=== PATIENT | male | born 1975 | race Caucasian/White ===

== ENCOUNTER 2018-06-17 18:42 | Inpatient (IN) | payer MEDICAID, OTHER, SELFPAY ==
[~2018-06-17] VITALS: Ht 182.9 cm; Wt 77.8 kg
--- NOTE | 2018-06-17 18:52 | NUR ---
IRENE ADAMES WITH SERVICE DOG FROM [facility], PT OUT OF INSULIN, METOPROLOL AND AMLODIPINE, SEEN AT [facility] YESTERDAY FOR SAME BUT LOST RX. HX DIABETES, HTN, DENIES ANYTHING ELSE. EKG DONE. PT PLACED ON MONITOR, VSS ON RA. NAD. PT C/O NAUSEA
--- NOTE | 2018-06-17 19:04 | NUR ---
BEDSIDE REPORT RECEIVED FROM JOANNE ASHTON. PT HAS DOG, STATED FOR EMOTIONAL SUPPORT IN ROOM.
--- NOTE | 2018-06-17 19:05 | NUR ---
FSBS DONE WITH HOSPITAL GLUCOMETER READS - HI
--- NOTE | 2018-06-17 19:10 | NUR ---
ORDERED FLUIDS HANGING
[2018-06-17] MEDS ORDERED: AMLODIPINE PO ×2 (19:26→21:02)
[2018-06-17] MEDS ORDERED: METOPROLOL (19:26)
[2018-06-17] MEDS ORDERED: SODIUM CHLORIDE 0.9% 1,000ML IVBOLUS ONE ×2 (19:30→20:30)
[2018-06-17] MEDS ORDERED: ONDANSETRON 2MG/ML, 2ML IVPush ONE (19:30)
[2018-06-17] MEDS ORDERED: SODIUM CHLORIDE FLUSH 10ML SYR IVF ONE (19:30)
[2018-06-17 19:33] LABS: MICROSCOPIC AUTO
[2018-06-17 19:38] LABS: O2 FLOW ROOM AIR L/min
[2018-06-17 19:39] LABS: CULTURE INDICATED? NO
[2018-06-17 19:41] LABS: BASOPHILS # (AUTO) 0.07 x10^3/uL (0-0.1); BASOPHILS % (AUTO) 0 % (0-1); EOSINOPHILS % (AUTO) 0 % (1-7); LYMPHOCYTES # (AUTO) 0.48 x10^3/uL (1-3.4); LYMPHOCYTES % (AUTO) 3 % (22-44); MD NO; MEAN CORPUSCULAR HEMOGLOBIN 29.9 pg (27.5-34.5); MEAN CORPUSCULAR HGB CONC 33.7 g/dL (33.2-36.2); MEAN CORPUSCULAR VOLUME 88.6 fL (81-97); MEAN PLATELET VOLUME 8.6 fL (7.4-10.4); MONOCYTES # (AUTO) 0.43 x10^3/uL (0.2-0.8); MONOCYTES % (AUTO) 3 % (2-9); NEUTROPHILS # (AUTO) 15.26 x10^3/uL (1.8-6.8); NEUTROPHILS % (AUTO) 94 % (42-75); PLATELET COUNT 352 x10^3/uL (130-400); RED BLOOD COUNT 4.03 x10^6/uL (4.38-5.82); RED CELL DISTRIBUTION WIDTH 14.4 % (9.4-14.8)
[2018-06-17 19:46] LABS: ALANINE AMINOTRANSFERASE 24 U/L (12-78); ALBUMIN 2.6 g/dL (3.4-5.0); ANION GAP 18 mmol/L (5-15); CALCIUM 7.9 mg/dL (8.5-10.1); CHLORIDE 93 mmol/L (98-107)
[2018-06-17 19:49] LABS: ALKALINE PHOSPHATASE 117 U/L (45-117); BILIRUBIN,TOTAL 0.7 mg/dL (0.2-1.0); CREATININE 1.98 mg/dL (0.7-1.3)
[2018-06-17] MEDS ORDERED: ONDANSETRON 2MG/ML, 2ML ONE (20:21)
[2018-06-17] MEDS ORDERED: INSULIN SINGLE DOSE, ER SQ-INSULIN ONE (20:21)
[2018-06-17 20:23] LABS: ACETONE, SERUM Large (80mg/dL) mg/dL (Negative)
--- NOTE | 2018-06-17 20:25 | NUR ---
PT AWARE OF PLAN FOR ADMISSION, AWARE THAT DOG CAN NOT STAY WITH HIM, PT STATES THAT HE HAS NO ONE TO COME NEW CAR GET READY MECHANIC THE DOG, AWARE WILL CALL ANIMAL CONTROL TO NEW CAR GET READY MECHANIC DOG FOR SHANTELL AND HOLD HIM UNTIL DISCHARGE. PT AGREEABLE WITH THIS PLAN.
[2018-06-17] MEDS ORDERED: hydrALAzine 20 MG/ML, 1ML IV ONE (20:30)
[2018-06-17] MEDS ORDERED: INSULIN REGULAR 100 UNITS/ML, 3ML VIAL IVPush ONE (20:30)
--- NOTE | 2018-06-17 20:31 | NUR ---
ANIMAL CONTROL CALLED AND IS ON THE WAY TO [employer] DOG.
--- NOTE | 2018-06-17 20:49 | NUR ---
ANIMAL CONTROL HERE AT THIS TIME.
[2018-06-17] MEDS ORDERED: METO25TA35 PO (21:02)
[2018-06-17] MEDS ORDERED: NPH,100V SQ (21:02)
--- NOTE | 2018-06-17 21:13 | NUR ---
HOSPITALIST IN TO SEE PT. ORDERED FLUIDS INFUSING. PT HR WAS 143, ERP AWARE. PT HR 139 AT THIS TIME. PT RESTING CALMLY IN BED. ANIMAL CONTROL CAME TO [facility]WER PT DOG. WILL CONTINUE TO MONITOR.
[2018-06-17] MEDS ORDERED: REGULAR INSULIN 62.5 UNITS in SODIUM CHLORIDE 0.9% 249.375 ML IV PRN (21:14)
[2018-06-17] MEDS ORDERED: D5%-0.45% NACL 1,000 ML IV PRN (21:14)
[2018-06-17] MEDS ORDERED: GLUCAGON 1 MG IM PRN (21:30)
[2018-06-17] MEDS ORDERED: DEXTROSE 4 GM TAB.CHEW PO PRN (21:30)
[2018-06-17] MEDS ORDERED: ONDANSETRON 2MG/ML, 2ML IVPush PRN (21:30)
[2018-06-17] MEDS ORDERED: DEXTROSE 50%, 50ML SYRINGE IVPush PRN (21:30)
--- NOTE | 2018-06-17 21:30 | NUR ---
PT FSBS DONE, READING IS STILL - HI. LAB IN TO DRAW REPEAT BLOOD GLUCOSE. PT RESTING CALMLY IN BED. PT HR REMAINS IN THE 130s.
--- NOTE | 2018-06-17 21:32 | NUR ---
FSBS READING HI
[2018-06-17] MEDS: SODIUM CHLORIDE 0.9% 1,000 ML IV SCH ×3 (22:02→23:37)
[2018-06-17 22:03] LABS: ANION GAP 17 mmol/L (5-15); CALCIUM 7.7 mg/dL (8.5-10.1); CHLORIDE 99 mmol/L (98-107); CREATININE 2.04 mg/dL (0.7-1.3)
[2018-06-17 22:06] LABS: CREATINE KINASE, TOTAL 256 U/L (39-308)
[2018-06-17 22:43] LABS: HEMOGLOBIN A1C 8.4 % (4.2-6.3)
--- NOTE | 2018-06-17 23:07 | NUR ---
REPORT TO SCOTT ASHTON
[2018-06-17] MEDS: HEPARIN 5,000 UNITS/ML, 1ML SQ SCH (23:36)
[2018-06-17 23:40] VITALS: BP 173/107
[2018-06-17 23:41] LABS: ANION GAP 12 mmol/L (5-15); CALCIUM 7.8 mg/dL (8.5-10.1); CHLORIDE 103 mmol/L (98-107); CREATININE 2.15 mg/dL (0.7-1.3)
[2018-06-17 23:43] LABS: CREATINE KINASE, TOTAL 262 U/L (39-308)
[2018-06-18] MEDS: hydrALAzine 20 MG/ML, 1ML IVPush PRN (00:06)
[2018-06-18] MEDS: SODIUM CHLORIDE 0.9% 1,000 ML IV SCH ×3 (00:14→02:14)
[2018-06-18] MEDS ORDERED: POTASSIUM CHLORIDE 20 MEQ in SODIUM CHLORIDE 0.9% 250 ML IV ONE (00:30)
[2018-06-18] MEDS ORDERED: PANTOPRAZOLE 40 MG IV IVPush SCH (01:00)
[2018-06-18 02:04] LABS: ANION GAP 8 mmol/L (5-15); CALCIUM 7.9 mg/dL (8.5-10.1); CHLORIDE 107 mmol/L (98-107); CREATININE 1.94 mg/dL (0.7-1.3)
[2018-06-18] MEDS: LABETALOL 5 MG/ML SYRINGE IVPush PRN ×2 (03:12→13:52)
[2018-06-18 04:46] LABS: MEAN CORPUSCULAR HEMOGLOBIN 29.8 pg (27.5-34.5); MEAN CORPUSCULAR HGB CONC 34.1 g/dL (33.2-36.2); MEAN CORPUSCULAR VOLUME 87.6 fL (81-97); MEAN PLATELET VOLUME 8.1 fL (7.4-10.4); PLATELET COUNT 345 x10^3/uL (130-400); RED BLOOD COUNT 3.83 x10^6/uL (4.38-5.82); RED CELL DISTRIBUTION WIDTH 14.4 % (9.4-14.8)
[2018-06-18 04:56] LABS: ANION GAP 6 mmol/L (5-15); CALCIUM 7.8 mg/dL (8.5-10.1); CHLORIDE 113 mmol/L (98-107)
[2018-06-18 04:57] LABS: CREATININE 1.77 mg/dL (0.7-1.3)
[2018-06-18] MEDS: HEPARIN 5,000 UNITS/ML, 1ML SQ SCH ×4 (05:30→21:09)
[2018-06-18 05:32] VITALS: BP 159/93
[2018-06-18 05:47] LABS: BASOPHILS # (AUTO) 0.08 x10^3/uL (0-0.1); BASOPHILS % (AUTO) 0 % (0-1); EOSINOPHILS % (AUTO) 0 % (1-7); LYMPHOCYTES # (AUTO) 1.52 x10^3/uL (1-3.4); LYMPHOCYTES % (AUTO) 8 % (22-44); MD SCAN; MONOCYTES # (AUTO) 1.19 x10^3/uL (0.2-0.8); MONOCYTES % (AUTO) 6 % (2-9); NEUTROPHILS # (AUTO) 16.14 x10^3/uL (1.8-6.8); NEUTROPHILS % (AUTO) 85 % (42-75)
[2018-06-18] MEDS ORDERED: POTASSIUM PHOSPHATE 44 MEQ in SODIUM CHLORIDE 0.9% 500 ML IV ONE (07:30)
[2018-06-18] MEDS: METOPROLOL TARTRATE 100 MG TABLET PO SCH ×2 (08:27→21:08)
[2018-06-18] MEDS: SODIUM CHLORIDE FLUSH 10ML SYR IVF SCH ×2 (08:27→21:00)
[2018-06-18] MEDS: AMLODIPINE 10 MG TAB PO SCH (08:27)
[2018-06-18] MEDS: SODIUM CHLORIDE 0.45% 1,000 ML IV SCH ×3 (09:37→23:30)
[2018-06-18] MEDS: INSULIN NPH HUMAN 100 UNIT/ML, 3ML VIAL SQ-INSULIN SCH ×2 (09:37→21:09)
[2018-06-18 10:26] LABS: AMPHETAMINE SCREEN, URINE Negative (Negative); BARBITURATE SCREEN, URINE Negative (Negative); BENZODIAZEPINE SCREEN, URINE Negative (Negative); CANNABINOID SCREEN, URINE Positive (Negative); COCAINE SCREEN, URINE Negative (Negative); METHADONE SCREEN, URINE Negative (Negative); OPIATE SCREEN, URINE Negative (Negative)
[2018-06-18] MEDS: INSULIN LISPRO 100 UNITS/ML, PEN SQ-INSULIN SCH ×3 (11:30→21:08)
[2018-06-18 11:57] LABS: RAPID INFLUENZA A Negative (Negative); RAPID INFLUENZA B Negative (Negative)
[2018-06-18 13:21] VITALS: BP 185/110
[2018-06-18 14:34] VITALS: BP 159/94
[2018-06-18] MEDS ORDERED: ACETAMINOPHEN 325 MG TABLET PO PRN (15:00)
[2018-06-18 20:22] VITALS: BP 155/90
[2018-06-19 01:54] VITALS: BP 150/85
[2018-06-19 05:45] LABS: ANION GAP 7 mmol/L (5-15); CALCIUM 7.8 mg/dL (8.5-10.1); CHLORIDE 111 mmol/L (98-107)
[2018-06-19 05:54] LABS: MEAN CORPUSCULAR HEMOGLOBIN 29.7 pg (27.5-34.5); MEAN CORPUSCULAR HGB CONC 33.6 g/dL (33.2-36.2); MEAN CORPUSCULAR VOLUME 88.3 fL (81-97); MEAN PLATELET VOLUME 8.5 fL (7.4-10.4); PLATELET COUNT 317 x10^3/uL (130-400); RED BLOOD COUNT 4.14 x10^6/uL (4.38-5.82); RED CELL DISTRIBUTION WIDTH 14.6 % (9.4-14.8)
[2018-06-19] MEDS: INSULIN LISPRO 100 UNITS/ML, PEN SQ-INSULIN SCH ×4 (06:39→21:21)
[2018-06-19 06:50] LABS: MD YES
[2018-06-19 06:53] LABS: BAND#(MANUAL) 0.12 x10^3/uL; BANDS%(MANUAL) 1 % (0-7); LYMPH#(MANUAL) 2.28 x10^3/uL (1-3.4); LYMPHS% (MANUAL) 19 % (22-44); MONOS#(MANUAL) 0.36 x10^3/uL (0.3-2.7); MONOS% (MANUAL) 3 % (2-9); SEG#(MANUAL) 9.24 x10^3/uL (1.8-6.8); SEGS% (MANUAL) 77 % (42-75)
[2018-06-19 06:55] LABS: <PLATELET ESTIMATE> ADEQUATE; <PLT MORPHOLOGY> NORMAL PLT MORPH; <RBC MORPHOLOGY> NORMAL
[2018-06-19 07:45] VITALS: BP 183/109
[2018-06-19] MEDS: AMLODIPINE 10 MG TAB PO SCH (08:46)
[2018-06-19] MEDS: METOPROLOL TARTRATE 100 MG TABLET PO SCH ×2 (08:47→21:19)
[2018-06-19] MEDS: SODIUM CHLORIDE FLUSH 10ML SYR IVF SCH ×2 (08:47→21:00)
[2018-06-19] MEDS: INSULIN NPH HUMAN 100 UNIT/ML, 3ML VIAL SQ-INSULIN SCH ×2 (08:47→21:20)
[2018-06-19] MEDS: SODIUM CHLORIDE 0.45% 1,000 ML IV SCH (08:48)
[2018-06-19 11:36] VITALS: BP 166/96
[2018-06-19] MEDS: LABETALOL 5 MG/ML SYRINGE IVPush PRN ×2 (11:37→18:48)
[2018-06-19 13:28] VITALS: BP 169/97
[2018-06-19] MEDS: HEPARIN 5,000 UNITS/ML, 1ML SQ SCH ×2 (13:30→19:41)
[2018-06-19 18:27] VITALS: BP 167/96
[2018-06-19 21:10] VITALS: BP 171/92
[2018-06-19] MEDS: hydrALAzine 20 MG/ML, 1ML IVPush PRN (21:24)
[2018-06-20 00:03] VITALS: BP 137/78
[2018-06-20] MEDS: HEPARIN 5,000 UNITS/ML, 1ML SQ SCH ×2 (02:24→13:30)
[2018-06-20 02:37] VITALS: BP 150/86
[2018-06-20] MEDS: INSULIN LISPRO 100 UNITS/ML, PEN SQ-INSULIN SCH ×3 (06:39→16:23)
[2018-06-20 07:47] VITALS: BP 154/96
[2018-06-20 07:54] VITALS: BP 154/74
[2018-06-20] MEDS: METOPROLOL TARTRATE 100 MG TABLET PO SCH (08:33)
[2018-06-20] MEDS: AMLODIPINE 10 MG TAB PO SCH (08:33)
[2018-06-20] MEDS: SODIUM CHLORIDE FLUSH 10ML SYR IVF SCH (08:34)
[2018-06-20] MEDS: INSULIN NPH HUMAN 100 UNIT/ML, 3ML VIAL SQ-INSULIN SCH (08:36)
[2018-06-20] MEDS ORDERED: NPH,100V SQ (13:29)
[2018-06-20] MEDS ORDERED: AMLO10TA4 PO (13:29)
[2018-06-20] MEDS ORDERED: METO25TA35 PO (13:29)
[2018-06-20 15:42] VITALS: BP 176/104
[2018-06-20] MEDS ORDERED: INSULIN NPH HUMAN 100 UNIT/ML, 3ML VIAL SQ-INSULIN ONE (16:30)
[2018-06-20 17:27] VITALS: BP 162/89
== END 2018-06-20 17:35 | disposition home or self-care (01) | DRG 638 ==
LOC: ED 20:56 → EDIP 21:14 → CSU 23:26 → 4NOR 06-18 10:06
PROVIDERS: ADMIT Family Medicine; ATTEND Family Medicine
DX: E10.10 Type 1 diabetes mellitus with ketoacidosis without coma (principal); N17.9 Acute kidney failure, unspecified; E10.43 Type 1 diabetes mellitus with diabetic autonomic (poly)neuropathy; E86.0 Dehydration; E87.5 Hyperkalemia; E87.6 Hypokalemia; I10 Essential (primary) hypertension; K31.84 Gastroparesis; Z59.0 Homelessness; Z63.8 Other specified problems related to primary support group; Z79.4 Long term (current) use of insulin; Z91.19 Patient's noncompliance with other medical treatment and regimen; Z88.0 Allergy status to penicillin; Z88.8 Allergy status to other drugs, medicaments and biological substances
CPT/HCPCS: 36415; 36600; 74022; 80048; 80053; 80307; 81001; 82010; 82550; 82803; 82947; 82962; 83036; 83690; 83735; 83930; 84100; 85025; 87081; 87400; 93005; 96374; 96375; 96376; G0378; J1815; J2405; J3480; C9113; J0360; J7030; J7040; J7050

== ENCOUNTER 2019-04-13 13:22 | Inpatient (IN) | payer MEDICAID ==
[~2019-04-13] VITALS: Ht 182.9 cm; Wt 68.9 kg
[~2019-04-13 13:22] MED LIST: AMLO10TA4 PO; AMLODIPINE PO; METO25TA35 PO; METOPROLOL; NPH,100V SQ
--- NOTE | 2019-04-13 14:11 | NUR ---
PT AMBULATORY TO ED FROM HOME. C/O N/V X4 DAYS. HX DM, HTN, STG 3 KIDNEY FAILURE, BGL 370 IN TRIAGE. "I FEEL DEHYDRATED". PIV EST, FLUIDS INFUSING. C/O ABD PAIN AND KIDNEY PAIN. NO DIFFICUTLY URINATING. HYPERTENSIVE, SEE VITALS. A&OX4 GCS 15 IDA CP. CALL GONZALES IN REACH. REPORT TO GERTRUDIS ASHTON.
[2019-04-13] MEDS ORDERED: ONDANSETRON 2MG/ML, 2ML ONE (14:16)
[2019-04-13] MEDS ORDERED: ONDANSETRON 2MG/ML, 2ML IVPush ONE (14:30)
[2019-04-13] MEDS ORDERED: SODIUM CHLORIDE 0.9% 1,000ML IVBOLUS ONE ×2 (14:30→16:30)
[2019-04-13] MEDS ORDERED: SODIUM CHLORIDE FLUSH 10ML SYR IVF ONE (14:30)
[2019-04-13 14:48] LABS: BASOPHILS # (AUTO) 0.02 x10^3/uL (0-0.1); BASOPHILS % (AUTO) 0 % (0-1); EOSINOPHILS % (AUTO) 0 % (1-7); LYMPHOCYTES # (AUTO) 1.12 x10^3/uL (1-3.4); LYMPHOCYTES % (AUTO) 10 % (22-44); MD NO; MEAN CORPUSCULAR HEMOGLOBIN 29.5 pg (27.5-34.5); MEAN CORPUSCULAR VOLUME 89.5 fL (81-97); MEAN PLATELET VOLUME 10.4 fL (7.4-10.4); MONOCYTES # (AUTO) 0.72 x10^3/uL (0.2-0.8); MONOCYTES % (AUTO) 6 % (2-9); NEUTROPHILS # (AUTO) 9.51 x10^3/uL (1.8-6.8); NEUTROPHILS % (AUTO) 84 % (42-75); PLATELET COUNT 241 x10^3/uL (130-400); RED BLOOD COUNT 5.97 x10^6/uL (4.38-5.82); RED CELL DISTRIBUTION WIDTH 13.8 % (9.4-14.8)
[2019-04-13 14:52] LABS: ALANINE AMINOTRANSFERASE 21 U/L (12-78); ALBUMIN 4.1 g/dL (3.4-5.0); ANION GAP 10 mmol/L (5-15); CHLORIDE 96 mmol/L (98-107); CREATININE 3.21 mg/dL (0.7-1.3)
[2019-04-13 14:55] LABS: ALKALINE PHOSPHATASE 144 U/L (45-117); BILIRUBIN,TOTAL 0.9 mg/dL (0.2-1.0); TOTAL PROTEIN 8.5 g/dL (6.4-8.2)
[2019-04-13 15:14] LABS: CULTURE INDICATED? NO; MICROSCOPIC AUTO
[2019-04-13] MEDS ORDERED: MORPHINE SULFATE 4 MG/ML, 1ML ONE (15:26)
--- NOTE | 2019-04-13 15:29 | NUR ---
MEDICATED FOR BILATERAL FLANK PAIN
[2019-04-13 15:30] LABS: ACETONE, SERUM Negative (Negative)
[2019-04-13] MEDS ORDERED: MORPHINE SULFATE 4 MG/ML, 1ML IVPush PRN (15:30)
--- NOTE | 2019-04-13 16:22 | NUR ---
AWAITING RE-EVAL. NO DISTRESS
[2019-04-13] MEDS ORDERED: SODIUM CHLORIDE 0.9% 1,000 ML IV ONE ×2 (16:24→16:27)
[2019-04-13] MEDS ORDERED: SODIUM CHLORIDE FLUSH 10ML SYR IVF PRN (16:30)
[2019-04-13] MEDS: SODIUM CHLORIDE 0.9% 1,000 ML IV SCH (16:31)
--- NOTE | 2019-04-13 16:49 | NUR ---
PT AWARE OF INTENTION TO ADMIT. IV BOLUS INFUSING. PT WATCHING TV, NO DISTRESS
[2019-04-13] MEDS ORDERED: INSU100C5 SQ-INSULIN (16:51)
[2019-04-13] MEDS ORDERED: DEXTROSE 4 GM TAB.CHEW PO PRN (17:00)
[2019-04-13] MEDS ORDERED: ONDANSETRON ODT 4 MG PO PRN (17:00)
[2019-04-13] MEDS ORDERED: ONDANSETRON 2MG/ML, 2ML IVPush PRN (17:00)
[2019-04-13] MEDS ORDERED: DEXTROSE 50%, 50ML SYRINGE IVPush PRN (17:00)
[2019-04-13] MEDS ORDERED: GLUCAGON 1 MG IM PRN (17:00)
--- NOTE | 2019-04-13 17:52 | NUR ---
REPORT TO GENARO ASHTON. PT TO BE TRANSPORTED TO FLOOR.
--- NOTE | 2019-04-13 18:30 | NUR ---
AWAITING TRANSPORTATION. NO DISTRESS.
[2019-04-13 19:32] VITALS: BP 136/91
[2019-04-13 19:45] VITALS: BP 136/91
[2019-04-13] MEDS: SODIUM CHLORIDE FLUSH 10ML SYR IVF SCH (20:37)
[2019-04-13] MEDS: INSULIN GLARGINE 100 UNITS/ML, PEN SQ-INSULIN SCH (21:00)
[2019-04-13] MEDS: INSULIN LISPRO 100 UNITS/ML, PEN SQ-INSULIN SCH (21:00)
[2019-04-13] MEDS: AMLODIPINE 2.5 MG TABLET PO SCH (22:15)
[2019-04-13] MEDS: PANTOPRAZOLE 40 MG IV IVPush SCH (22:16)
[2019-04-14 01:08] VITALS: BP 108/72
[2019-04-14] MEDS: SODIUM CHLORIDE 0.9% 1,000 ML IV SCH ×3 (04:09→23:10)
[2019-04-14 06:13] LABS: CHLORIDE 105 mmol/L (98-107)
[2019-04-14 06:18] LABS: BASOPHILS # (AUTO) 0.07 x10^3/uL (0-0.1); BASOPHILS % (AUTO) 1 % (0-1); EOSINOPHILS # (AUTO) 0.05 x10^3/uL (0-0.4); EOSINOPHILS % (AUTO) 1 % (1-7); LYMPHOCYTES # (AUTO) 2.69 x10^3/uL (1-3.4); LYMPHOCYTES % (AUTO) 33 % (22-44); MD NO; MEAN CORPUSCULAR HGB CONC 33.5 g/dL (33.2-36.2); MEAN CORPUSCULAR VOLUME 89.5 fL (81-97); MEAN PLATELET VOLUME 9.4 fL (7.4-10.4); MONOCYTES # (AUTO) 0.74 x10^3/uL (0.2-0.8); MONOCYTES % (AUTO) 9 % (2-9); NEUTROPHILS # (AUTO) 4.58 x10^3/uL (1.8-6.8); NEUTROPHILS % (AUTO) 56 % (42-75); PLATELET COUNT 182 x10^3/uL (130-400); RED BLOOD COUNT 4.32 x10^6/uL (4.38-5.82)
[2019-04-14 06:28] LABS: ALANINE AMINOTRANSFERASE 10 U/L (12-78); ALBUMIN 2.4 g/dL (3.4-5.0); ALKALINE PHOSPHATASE 86 U/L (45-117); ANION GAP 8 mmol/L (5-15); BILIRUBIN,TOTAL 0.5 mg/dL (0.2-1.0); CALCIUM 7.1 mg/dL (8.5-10.1); CREATININE 2.38 mg/dL (0.7-1.3); TOTAL PROTEIN 5.2 g/dL (6.4-8.2)
[2019-04-14] MEDS ORDERED: MAGNESIUM SULFATE PMX 2GM/50ML 50 ML IV ONE (07:30)
[2019-04-14 08:53] VITALS: BP 161/94
[2019-04-14] MEDS: INSULIN GLARGINE 100 UNITS/ML, PEN SQ-INSULIN SCH (08:53)
[2019-04-14] MEDS: PANTOPRAZOLE 40 MG IV IVPush SCH ×2 (08:55→20:49)
[2019-04-14] MEDS: AMLODIPINE 2.5 MG TABLET PO SCH ×2 (08:56→20:47)
[2019-04-14] MEDS: SODIUM CHLORIDE FLUSH 10ML SYR IVF SCH ×2 (08:56→20:49)
[2019-04-14] MEDS: INSULIN LISPRO 100 UNITS/ML, PEN SQ-INSULIN SCH ×4 (09:18→20:49)
[2019-04-14 12:50] VITALS: BP 147/95
[2019-04-14 18:43] VITALS: BP 137/80
[2019-04-14] MEDS ORDERED: INSULIN NPH HUMAN 100 UNIT/ML, 3ML VIAL SQ-INSULIN SCH (21:00)
[2019-04-15 01:28] VITALS: BP 159/91
[2019-04-15 07:57] LABS: BASOPHILS # (AUTO) 0.04 x10^3/uL (0-0.1); BASOPHILS % (AUTO) 1 % (0-1); EOSINOPHILS # (AUTO) 0.14 x10^3/uL (0-0.4); EOSINOPHILS % (AUTO) 2 % (1-7); LYMPHOCYTES # (AUTO) 2.45 x10^3/uL (1-3.4); LYMPHOCYTES % (AUTO) 37 % (22-44); MD NO; MEAN CORPUSCULAR HEMOGLOBIN 29.9 pg (27.5-34.5); MEAN CORPUSCULAR HGB CONC 33.1 g/dL (33.2-36.2); MEAN CORPUSCULAR VOLUME 90.3 fL (81-97); MEAN PLATELET VOLUME 9.3 fL (7.4-10.4); MONOCYTES # (AUTO) 0.65 x10^3/uL (0.2-0.8); MONOCYTES % (AUTO) 10 % (2-9); NEUTROPHILS # (AUTO) 3.44 x10^3/uL (1.8-6.8); NEUTROPHILS % (AUTO) 51 % (42-75); PLATELET COUNT 199 x10^3/uL (130-400); RED BLOOD COUNT 4.59 x10^6/uL (4.38-5.82); RED CELL DISTRIBUTION WIDTH 13.5 % (9.4-14.8)
[2019-04-15 08:02] LABS: ANION GAP 7 mmol/L (5-15); CHLORIDE 111 mmol/L (98-107)
[2019-04-15] MEDS: INSULIN LISPRO 100 UNITS/ML, PEN SQ-INSULIN SCH ×4 (08:08→20:59)
[2019-04-15 08:22] VITALS: BP 162/100
[2019-04-15] MEDS: SODIUM CHLORIDE 0.9% 1,000 ML IV SCH ×2 (08:34→16:40)
[2019-04-15] MEDS: PANTOPRAZOLE 40 MG IV IVPush SCH ×2 (08:35→20:58)
[2019-04-15] MEDS: AMLODIPINE 2.5 MG TABLET PO SCH (08:35)
[2019-04-15] MEDS: SODIUM CHLORIDE FLUSH 10ML SYR IVF SCH ×2 (08:35→20:58)
[2019-04-15] MEDS ORDERED: INSULIN NPH HUMAN 100 UNIT/ML, 3ML VIAL SQ-INSULIN ONE (09:00)
[2019-04-15] MEDS ORDERED: INSULIN NPH HUMAN 100 UNIT/ML, 3ML VIAL SQ-INSULIN SCH (09:00)
[2019-04-15 13:42] VITALS: BP 149/90
[2019-04-15 19:56] VITALS: BP 192/118
[2019-04-15] MEDS: LABETALOL 5MG/ML, 20ML IVPush PRN (20:57)
[2019-04-15] MEDS: INSULIN NPH HUMAN 100 UNIT/ML, 3ML VIAL SQ-INSULIN SCH (20:58)
[2019-04-15] MEDS: AMLODIPINE 5 MG TABLET PO SCH (20:58)
[2019-04-15 21:42] VITALS: BP 168/99
[2019-04-16] VITALS (9 sets, daily range): BP systolic 119–203; BP diastolic 67–116
[2019-04-16] MEDS: SODIUM CHLORIDE 0.9% 1,000 ML IV SCH (00:12)
[2019-04-16] MEDS: LABETALOL 5MG/ML, 20ML IVPush PRN (07:30)
[2019-04-16] MEDS: AMLODIPINE 5 MG TABLET PO SCH ×2 (08:34→21:05)
[2019-04-16] MEDS: INSULIN NPH HUMAN 100 UNIT/ML, 3ML VIAL SQ-INSULIN SCH ×2 (08:35→21:05)
[2019-04-16] MEDS: PANTOPROZOLE 40MG TABLET PO SCH ×2 (08:35→17:06)
[2019-04-16] MEDS: INSULIN LISPRO 100 UNITS/ML, PEN SQ-INSULIN SCH ×6 (08:36→21:04)
[2019-04-16] MEDS: SODIUM CHLORIDE FLUSH 10ML SYR IVF SCH ×2 (08:37→21:05)
[2019-04-16 09:37] LABS: ANION GAP 7 mmol/L (5-15); CALCIUM 7.5 mg/dL (8.5-10.1); CHLORIDE 108 mmol/L (98-107); CREATININE 2.16 mg/dL (0.7-1.3)
[2019-04-16] MEDS ORDERED: hydrALAzine 20 MG/ML, 1ML IV ONE (10:00)
[2019-04-16] MEDS ORDERED: hydrALAzine 20 MG/ML, 1ML IV PRN (11:30)
[2019-04-16] MEDS: METOPROLOL TARTRATE 25 MG TABLET PO SCH ×2 (12:24→21:05)
[2019-04-16] MEDS ORDERED: INSULIN LISPRO 100 UNITS/ML, PEN SQ-INSULIN SCH (17:00)
[2019-04-17 00:21] VITALS: BP 156/94
[2019-04-17] MEDS: PANTOPROZOLE 40MG TABLET PO SCH ×2 (06:22→17:06)
[2019-04-17] MEDS: INSULIN LISPRO 100 UNITS/ML, PEN SQ-INSULIN SCH ×6 (07:00→20:46)
[2019-04-17 07:34] VITALS: BP 145/95
[2019-04-17] MEDS: METOPROLOL TARTRATE 25 MG TABLET PO SCH ×2 (08:39→20:45)
[2019-04-17] MEDS: AMLODIPINE 5 MG TABLET PO SCH ×2 (08:39→20:45)
[2019-04-17] MEDS: SODIUM CHLORIDE FLUSH 10ML SYR IVF SCH ×2 (08:39→20:45)
[2019-04-17] MEDS: INSULIN NPH HUMAN 100 UNIT/ML, 3ML VIAL SQ-INSULIN SCH ×2 (08:41→20:46)
[2019-04-17 12:03] LABS: ANION GAP 7 mmol/L (5-15); CALCIUM 8.6 mg/dL (8.5-10.1); CHLORIDE 109 mmol/L (98-107); CREATININE 2.23 mg/dL (0.7-1.3)
[2019-04-17 12:50] VITALS: BP 161/111
[2019-04-17 20:42] VITALS: BP 111/76
[2019-04-18 00:24] VITALS: BP 132/79
[2019-04-18] MEDS: PANTOPROZOLE 40MG TABLET PO SCH (06:05)
[2019-04-18] MEDS: INSULIN LISPRO 100 UNITS/ML, PEN SQ-INSULIN SCH ×2 (07:00→11:00)
[2019-04-18] MEDS: SODIUM CHLORIDE FLUSH 10ML SYR IVF SCH (08:31)
[2019-04-18] MEDS: AMLODIPINE 5 MG TABLET PO SCH (08:47)
[2019-04-18] MEDS: METOPROLOL TARTRATE 25 MG TABLET PO SCH (08:47)
[2019-04-18] MEDS: INSULIN NPH HUMAN 100 UNIT/ML, 3ML VIAL SQ-INSULIN SCH (08:49)
[2019-04-18 08:52] LABS: ANION GAP 4 mmol/L (5-15); CALCIUM 8.8 mg/dL (8.5-10.1); CHLORIDE 108 mmol/L (98-107); CREATININE 2.52 mg/dL (0.7-1.3)
[2019-04-18 09:08] VITALS: BP 154/85
[2019-04-18] MEDS ORDERED: PANT40TA5 PO (12:20)
[2019-04-18 13:40] VITALS: BP 151/88
[2019-04-18] MEDS ORDERED: FLU VACC QS2019-20 36MOS UP/PF 0.5 ML IM-VACC ONE (15:00)
== END 2019-04-18 14:50 | disposition home or self-care (01) | DRG 469 ==
LOC: ED 16:26 → EDIP 16:27 → ED 16:31 → 3N 18:50 → DCLOUNGE 04-18 14:49
PROVIDERS: ADMIT Internal Medicine; ATTEND Hospitalist
DX: N17.9 Acute kidney failure, unspecified (principal); E10.22 Type 1 diabetes mellitus with diabetic chronic kidney disease; E10.43 Type 1 diabetes mellitus with diabetic autonomic (poly)neuropathy; K31.84 Gastroparesis; D75.1 Secondary polycythemia; E10.65 Type 1 diabetes mellitus with hyperglycemia; D72.829 Elevated white blood cell count, unspecified; N18.3 Chronic kidney disease, stage 3 (moderate); E86.0 Dehydration; E87.1 Hypo-osmolality and hyponatremia; F17.200 Nicotine dependence, unspecified, uncomplicated; I12.9 Hypertensive chronic kidney disease with stage 1 through stage 4 chronic kidney disease, or unspecified chronic kidney disease; I16.1 Hypertensive emergency; Z83.3 Family history of diabetes mellitus; Z91.19 Patient's noncompliance with other medical treatment and regimen; K29.70 Gastritis, unspecified, without bleeding; Z88.0 Allergy status to penicillin; Z88.8 Allergy status to other drugs, medicaments and biological substances
CPT/HCPCS: 36415; 71045; 80048; 80053; 81001; 82010; 82436; 82570; 82728; 82800; 82947; 82962; 83036; 83540; 83550; 83690; 83735; 84100; 84133; 84300; 84443; 85025; 90686; 93005; 96361; 96374; 96375; G0378; J1815; J2405; C9113; J0360; J2270; J3475; J7030

== ENCOUNTER 2019-05-03 18:38 | Inpatient (IN) | payer MEDICAID ==
[~2019-05-03] VITALS: Ht 182.9 cm; Wt 70.8 kg
[~2019-05-03 18:38] MED LIST changes: +INSU100C5 SQ-INSULIN; +PANT40TA5 PO
--- NOTE | 2019-05-03 19:08 | NUR ---
Patient presents to ER c/o N/V/D since yesterday. Patient has not been able to keep any food/water down. He vomited once in triage. No blood noted to vomitus. Patient also c/o constant abd pain in all quadrants. He is unable to describe the pain. Patient denies fevers. He states he had his flu shot a few weeks ago. Patient is in obvious discomfort. Respirations even and unlabored. Fresh vomit bag provided.
[2019-05-03] MEDS ORDERED: HALOPERIDOL 5 MG/ML ONE (19:28)
[2019-05-03] MEDS ORDERED: DIPHENHYDRAMINE 50 MG/ML, 1ML ONE (19:28)
[2019-05-03] MEDS ORDERED: ONDANSETRON 2MG/ML, 2ML ONE (19:29)
[2019-05-03] MEDS ORDERED: METOCLOPRAMIDE 5 MG/ML, 2ML ONE (19:29)
[2019-05-03] MEDS ORDERED: FAMOTIDINE 20 MG/2 ML ONE (19:29)
[2019-05-03] MEDS ORDERED: ONDANSETRON 2MG/ML, 2ML IVPush ONE (19:30)
[2019-05-03] MEDS ORDERED: DIPHENHYDRAMINE 50 MG/ML, 1ML IVPush ONE (19:30)
[2019-05-03] MEDS ORDERED: SODIUM CHLORIDE 0.9% 1,000ML IVBOLUS ONE ×2 (19:30→20:30)
[2019-05-03] MEDS ORDERED: HALOPERIDOL 5 MG/ML IM ONE (19:30)
[2019-05-03] MEDS ORDERED: METOCLOPRAMIDE 5 MG/ML, 2ML IVPush ONE (19:30)
[2019-05-03] MEDS ORDERED: FAMOTIDINE 20 MG/2 ML IVPush ONE (19:30)
[2019-05-03] MEDS ORDERED: SODIUM CHLORIDE FLUSH 10ML SYR IVF ONE (19:30)
[2019-05-03 19:34] LABS: BASOPHILS # (AUTO) 0.04 x10^3/uL (0-0.1); BASOPHILS % (AUTO) 1 % (0-1); EOSINOPHILS # (AUTO) 0.06 x10^3/uL (0-0.4); EOSINOPHILS % (AUTO) 1 % (1-7); LYMPHOCYTES % (AUTO) 25 % (22-44); MD NO; MEAN CORPUSCULAR HEMOGLOBIN 29.6 pg (27.5-34.5); MEAN CORPUSCULAR HGB CONC 33.7 g/dL (33.2-36.2); MEAN CORPUSCULAR VOLUME 87.6 fL (81-97); MEAN PLATELET VOLUME 9.3 fL (7.4-10.4); MONOCYTES # (AUTO) 0.75 x10^3/uL (0.2-0.8); MONOCYTES % (AUTO) 9 % (2-9); NEUTROPHILS % (AUTO) 65 % (42-75); PLATELET COUNT 273 x10^3/uL (130-400); RED BLOOD COUNT 5.23 x10^6/uL (4.38-5.82); RED CELL DISTRIBUTION WIDTH 13.3 % (9.4-14.8)
[2019-05-03 19:44] LABS: ALANINE AMINOTRANSFERASE 18 U/L (12-78); ANION GAP 6 mmol/L (5-15); CALCIUM 9.5 mg/dL (8.5-10.1); CHLORIDE 105 mmol/L (98-107); CREATININE 3.13 mg/dL (0.7-1.3)
[2019-05-03] MEDS ORDERED: DEXTROSE 50%, 50ML SYRINGE ONE (20:01)
[2019-05-03 20:05] LABS: ALKALINE PHOSPHATASE 115 U/L (45-117); BILIRUBIN,TOTAL 0.5 mg/dL (0.2-1.0); TOTAL PROTEIN 7.8 g/dL (6.4-8.2)
[2019-05-03] MEDS ORDERED: DEXTROSE 50%, 50ML SYRINGE IVPush ONE (20:30)
[2019-05-03 20:45] LABS: ACETONE, SERUM Negative (Negative)
--- NOTE | 2019-05-03 20:57 | NUR ---
Pt states feeling much better after medication admin. NS infusing appropriately. Vss. WCTM.
[2019-05-03] MEDS ORDERED: PROMETHAZINE 25 MG/ML, 1ML ONE (21:23)
[2019-05-03] MEDS ORDERED: PROMETHAZINE 25 MG/ML, 1ML IM ONE (21:30)
--- NOTE | 2019-05-03 21:30 | NUR ---
Patient still c/o nausea. Admin meds per may.
[2019-05-03 21:58] LABS: MICROSCOPIC AUTO
[2019-05-03 22:02] LABS: CULTURE INDICATED? NO
--- NOTE | 2019-05-03 22:09 | NUR ---
Report given to POLI Brooks. Patient to be tranferred to room 364.
[2019-05-03] MEDS ORDERED: PROMETHAZINE 25 MG/ML, 1ML IM PRN (22:30)
[2019-05-03] MEDS ORDERED: morphine SULFATE 10 MG/ML, 1ML IVPush PRN (22:30)
[2019-05-03] MEDS ORDERED: DEXTROSE 50%, 50ML SYRINGE IVPush PRN (22:30)
[2019-05-03] MEDS ORDERED: DEXTROSE 4 GM TAB.CHEW PO PRN (22:30)
[2019-05-03] MEDS ORDERED: ACETAMINOPHEN 325 MG TABLET PO PRN (22:30)
[2019-05-03] MEDS ORDERED: hydrALAzine 20 MG/ML, 1ML IVPush PRN (22:30)
[2019-05-03] MEDS ORDERED: GLUCAGON 1 MG IM PRN (22:30)
[2019-05-03] MEDS ORDERED: GABAPENTIN 300 MG CAPSULE PO PRN (22:30)
[2019-05-03] MEDS ORDERED: ONDANSETRON 2MG/ML, 2ML IVPush PRN (22:30)
[2019-05-03 22:51] LABS: AMPHETAMINE SCREEN, URINE Negative (Negative); BARBITURATE SCREEN, URINE Negative (Negative); BENZODIAZEPINE SCREEN, URINE Negative (Negative); CANNABINOID SCREEN, URINE Positive (Negative); COCAINE SCREEN, URINE Negative (Negative); METHADONE SCREEN, URINE Negative (Negative); OPIATE SCREEN, URINE Negative (Negative)
[2019-05-03 23:13] VITALS: BP 119/78
[2019-05-03 23:15] VITALS: BP 119/78
[2019-05-03] MEDS: LACTATED RINGERS 1,000 ML IV SCH (23:50)
[2019-05-03] MEDS: METOPROLOL TARTRATE 100 MG TABLET PO SCH (23:50)
[2019-05-03] MEDS: NICOTINE 21 MG/24 HR PATCH.TD24 TD SCH (23:50)
[2019-05-03] MEDS: HEPARIN 5,000 UNITS/ML, 1ML SQ SCH (23:50)
[2019-05-04 02:16] VITALS: BP 115/70
[2019-05-04] MEDS: PANTOPROZOLE 40MG TABLET PO SCH ×2 (05:40→16:33)
[2019-05-04] MEDS: HEPARIN 5,000 UNITS/ML, 1ML SQ SCH ×3 (06:30→22:30)
[2019-05-04 06:40] LABS: BASOPHILS # (AUTO) 0.04 x10^3/uL (0-0.1); BASOPHILS % (AUTO) 1 % (0-1); EOSINOPHILS # (AUTO) 0.08 x10^3/uL (0-0.4); EOSINOPHILS % (AUTO) 1 % (1-7); LYMPHOCYTES # (AUTO) 2.59 x10^3/uL (1-3.4); LYMPHOCYTES % (AUTO) 40 % (22-44); MD NO; MEAN CORPUSCULAR HEMOGLOBIN 29.6 pg (27.5-34.5); MEAN CORPUSCULAR HGB CONC 33.7 g/dL (33.2-36.2); MEAN CORPUSCULAR VOLUME 87.9 fL (81-97); MEAN PLATELET VOLUME 9.6 fL (7.4-10.4); MONOCYTES % (AUTO) 8 % (2-9); NEUTROPHILS # (AUTO) 3.19 x10^3/uL (1.8-6.8); NEUTROPHILS % (AUTO) 50 % (42-75); PLATELET COUNT 208 x10^3/uL (130-400); RED BLOOD COUNT 4.18 x10^6/uL (4.38-5.82); RED CELL DISTRIBUTION WIDTH 13.5 % (9.4-14.8)
[2019-05-04 06:46] VITALS: BP 144/91
[2019-05-04 06:47] LABS: ANION GAP 9 mmol/L (5-15); CALCIUM 7.7 mg/dL (8.5-10.1); CHLORIDE 109 mmol/L (98-107); CREATININE 2.64 mg/dL (0.7-1.3)
[2019-05-04] MEDS: LACTATED RINGERS 1,000 ML IV SCH (09:50)
[2019-05-04] MEDS: AMLODIPINE 10 MG TAB PO SCH (09:50)
[2019-05-04] MEDS: METOPROLOL TARTRATE 100 MG TABLET PO SCH ×2 (09:50→20:07)
[2019-05-04] MEDS ORDERED: ACETAMINOPHEN 325 MG TABLET PO PRN (12:00)
[2019-05-04 13:03] VITALS: BP 189/105
[2019-05-04] MEDS: INSULIN LISPRO 100 UNITS/ML, PEN SQ-INSULIN SCH ×3 (13:58→20:33)
[2019-05-04] MEDS: POTASSIUM CHLORIDE 20 MEQ in LACTATED RINGERS 1,000 ML IV SCH (13:58)
[2019-05-04 16:10] VITALS: BP 129/86
[2019-05-04] MEDS ORDERED: INSULIN LISPRO 100 UNIT/ML, 3ML VIAL SQ-INSULIN ONE (20:00)
[2019-05-04] MEDS: SODIUM CHLORIDE FLUSH 10ML SYR IVF SCH (20:07)
[2019-05-04] MEDS: INSULIN NPH HUMAN 100 UNIT/ML, 3ML VIAL SQ-INSULIN SCH (20:34)
[2019-05-04 21:31] VITALS: BP 195/119
[2019-05-04] MEDS: NICOTINE 21 MG/24 HR PATCH.TD24 TD SCH (22:30)
[2019-05-05 01:12] VITALS: BP 123/76
[2019-05-05] MEDS: POTASSIUM CHLORIDE 20 MEQ in LACTATED RINGERS 1,000 ML IV SCH ×2 (03:20→11:05)
[2019-05-05] MEDS: PANTOPROZOLE 40MG TABLET PO SCH (05:16)
[2019-05-05] MEDS: HEPARIN 5,000 UNITS/ML, 1ML SQ SCH (05:33)
[2019-05-05 05:49] LABS: ANION GAP 7 mmol/L (5-15); CALCIUM 8.3 mg/dL (8.5-10.1); CHLORIDE 103 mmol/L (98-107); CREATININE 2.92 mg/dL (0.7-1.3)
[2019-05-05 07:52] VITALS: BP 142/100
[2019-05-05] MEDS: INSULIN LISPRO 100 UNITS/ML, PEN SQ-INSULIN SCH ×2 (07:54→11:00)
[2019-05-05] MEDS: AMLODIPINE 10 MG TAB PO SCH (07:55)
[2019-05-05] MEDS: METOPROLOL TARTRATE 100 MG TABLET PO SCH (07:55)
[2019-05-05] MEDS: INSULIN NPH HUMAN 100 UNIT/ML, 3ML VIAL SQ-INSULIN SCH (07:55)
[2019-05-05] MEDS: SODIUM CHLORIDE FLUSH 10ML SYR IVF SCH (07:56)
[2019-05-05] MEDS ORDERED: SODIUM CHLORIDE 0.9% 1,000ML IVBOLUS ONE (09:00)
[2019-05-05] MEDS ORDERED: CALCIUM GLUCONATE 4.6 MEQ in SODIUM CHLORIDE 0.9% 100 ML IV ONE (09:00)
[2019-05-05 12:45] VITALS: BP 197/120
[2019-05-05 13:28] VITALS: BP 192/118
[2019-05-05] MEDS ORDERED: METO25TA91 PO (13:43)
[2019-05-05] MEDS ORDERED: METOPROLOL TARTRATE 100 MG TABLET PO SCH (14:00)
[2019-05-05] MEDS ORDERED: METOPROLOL SUCCINATE 50 MG TAB.ER.24H PO SCH (21:00)
== END 2019-05-05 14:54 | disposition home or self-care (01) | DRG 48 ==
LOC: ED 21:19 → EDIP 21:43 → 3N 22:40 → DCLOUNGE 05-05 14:47
PROVIDERS: ADMIT Family Medicine; ATTEND Family Medicine
DX: E10.43 Type 1 diabetes mellitus with diabetic autonomic (poly)neuropathy (principal); E10.22 Type 1 diabetes mellitus with diabetic chronic kidney disease; E10.649 Type 1 diabetes mellitus with hypoglycemia without coma; N17.9 Acute kidney failure, unspecified; N18.3 Chronic kidney disease, stage 3 (moderate); K31.84 Gastroparesis; E86.0 Dehydration; F12.10 Cannabis abuse, uncomplicated; F17.210 Nicotine dependence, cigarettes, uncomplicated; I12.9 Hypertensive chronic kidney disease with stage 1 through stage 4 chronic kidney disease, or unspecified chronic kidney disease; Z59.0 Homelessness; Z83.3 Family history of diabetes mellitus; Z91.19 Patient's noncompliance with other medical treatment and regimen; Z88.0 Allergy status to penicillin; Z88.8 Allergy status to other drugs, medicaments and biological substances
CPT/HCPCS: 36415; 80048; 80053; 80307; 81001; 82010; 82947; 82962; 83036; 83605; 83690; 83735; 84100; 85025; 86140; 96372; 96374; 96375; 99285; G0378; J0610; J1815; J2405; J2550; J3480; J0360; J1200; J1630; J2765; J3490; J7030; J7120

== ENCOUNTER 2019-06-11 18:23 | Inpatient (IN) | payer MEDICAID ==
[~2019-06-11] VITALS: Ht 182.9 cm; Wt 72.7 kg
[~2019-06-11 18:23] MED LIST changes: +METO25TA91 PO
[2019-06-11] MEDS ORDERED: SODIUM CHLORIDE 0.9% 1,000ML IVBOLUS ONE (19:00)
[2019-06-11] MEDS ORDERED: ONDANSETRON 2MG/ML, 2ML IVPush ONE (19:00)
[2019-06-11] MEDS ORDERED: MORPHINE SULFATE 4 MG/ML, 1ML ONE (19:05)
[2019-06-11] MEDS ORDERED: ONDANSETRON 2MG/ML, 2ML ONE (19:05)
[2019-06-11 19:13] LABS: MEAN CORPUSCULAR HEMOGLOBIN 29.4 pg (27.5-34.5); MEAN CORPUSCULAR HGB CONC 33.5 g/dL (33.2-36.2); MEAN PLATELET VOLUME 9.5 fL (7.4-10.4); PLATELET COUNT 292 x10^3/uL (130-400); RED BLOOD COUNT 5.64 x10^6/uL (4.38-5.82); RED CELL DISTRIBUTION WIDTH 13.8 % (9.4-14.8)
[2019-06-11] MEDS: MORPHINE SULFATE 4 MG/ML, 1ML IVPush PRN ×2 (19:17→20:46)
--- NOTE | 2019-06-11 19:24 | NUR ---
PT HAS CO OF ABDOMINAL PAIN AND NAUSEA. PT STATES HE IS DKA. "MY BS WAS 600 AT HOME" PT WAS TRYING TO INDUCE VOMITING. VSS STABLE . LAINE ESTABLISHED AND MEDICATED PER ORDERS.
[2019-06-11 19:25] LABS: ALANINE AMINOTRANSFERASE 20 U/L (12-78); ALBUMIN 4.6 g/dL (3.4-5.0); ANION GAP 10 mmol/L (5-15); CALCIUM 10.8 mg/dL (8.5-10.1); CHLORIDE 99 mmol/L (98-107); CREATININE 3.88 mg/dL (0.7-1.3)
[2019-06-11 19:26] LABS: ALKALINE PHOSPHATASE 153 U/L (45-117); TOTAL PROTEIN 9.5 g/dL (6.4-8.2)
[2019-06-11 19:41] LABS: BASOPHILS # (AUTO) 0.03 x10^3/uL (0-0.1); BASOPHILS % (AUTO) 0 % (0-1); EOSINOPHILS % (AUTO) 0 % (1-7); LYMPHOCYTES # (AUTO) 0.79 x10^3/uL (1-3.4); LYMPHOCYTES % (AUTO) 4 % (22-44); MD SCAN; MONOCYTES # (AUTO) 0.42 x10^3/uL (0.2-0.8); MONOCYTES % (AUTO) 2 % (2-9); NEUTROPHILS # (AUTO) 18.84 x10^3/uL (1.8-6.8); NEUTROPHILS % (AUTO) 94 % (42-75)
[2019-06-11 19:47] LABS: ACETONE, SERUM Moderate(40mg/dL) (Negative)
[2019-06-11] MEDS ORDERED: METOPROLOL 1 MG/ML, 5ML ONE (20:09)
[2019-06-11] MEDS ORDERED: AMLODIPINE 5 MG TABLET ONE (20:09)
--- NOTE | 2019-06-11 20:27 | NUR ---
MEDICATED PER ORDERS, MARBLE WORKER IN PLACE. NO NEEDS AT THIS TIME.
[2019-06-11] MEDS ORDERED: METOPROLOL 1 MG/ML, 5ML IVPush ONE (20:30)
[2019-06-11] MEDS ORDERED: AMLODIPINE 5 MG TABLET PO ONE (20:30)
--- NOTE | 2019-06-11 20:56 | NUR ---
MEDICATED PER ORDERS FOR BP. DISCUSSED IF SEPSIS PROTOCOL IS NEEDED W . NOT NEEDED
--- NOTE | 2019-06-11 20:57 | NUR ---
REPORT TO NEWTON
[2019-06-11] MEDS ORDERED: hydrALAzine 20 MG/ML, 1ML IV ONE (21:00)
[2019-06-11] MEDS: SODIUM CHLORIDE 0.9% 1,000 ML IV SCH (21:10)
[2019-06-11] MEDS ORDERED: ACETAMINOPHEN 325 MG TABLET PO PRN (21:30)
[2019-06-11] MEDS ORDERED: morphine SULFATE 10 MG/ML, 1ML IVPush PRN (21:30)
[2019-06-11] MEDS ORDERED: hydrALAzine 20 MG/ML, 1ML IVPush PRN (21:30)
[2019-06-11] MEDS: METOPROLOL TARTRATE 25 MG TAB PO SCH (21:30)
[2019-06-11] MEDS ORDERED: LABETALOL 5MG/ML, 20ML IVPush PRN (21:30)
[2019-06-11] MEDS ORDERED: ENALAPRILAT 1.25 MG/ML, 2ML IVPush PRN (21:30)
[2019-06-11] MEDS: HEPARIN 5,000 UNITS/ML, 1ML SQ SCH (21:30)
[2019-06-11] MEDS ORDERED: PROMETHAZINE 25 MG/ML, 1ML IM PRN (21:30)
[2019-06-11] MEDS ORDERED: ONDANSETRON 2MG/ML, 2ML IVPush PRN (21:30)
[2019-06-11] MEDS ORDERED: ENALAPRILAT 1.25 MG/ML, 1ML ONE (21:34)
--- NOTE | 2019-06-11 21:38 | NUR ---
PT MEDICATED FOR HTN 173/ 109.
--- NOTE | 2019-06-11 21:59 | NUR ---
PT BACK FROM CT AT THIS TIME. PT CONTINUES TO BE HYPERTENSIVE AND UNCOOPERATIVE WITH VS AT THIS TIME.
[2019-06-11 23:22] VITALS: BP 202/133
[2019-06-12 00:36] VITALS: BP 157/121
[2019-06-12] MEDS: INSULIN NPH HUMAN 100 UNIT/ML, 3ML VIAL SQ-INSULIN SCH ×3 (00:41→20:06)
[2019-06-12 03:04] LABS: MICROSCOPIC AUTO
[2019-06-12 03:14] LABS: AMPHETAMINE SCREEN, URINE Negative (Negative); BARBITURATE SCREEN, URINE Negative (Negative); BENZODIAZEPINE SCREEN, URINE Negative (Negative); CANNABINOID SCREEN, URINE Positive (Negative); CHLORIDE,URINE RANDOM 37 mmol/L; COCAINE SCREEN, URINE Negative (Negative); METHADONE SCREEN, URINE Negative (Negative); OPIATE SCREEN, URINE Positive (Negative); POTASSIUM,URINE RANDOM 28 mmol/L; SODIUM,URINE RANDOM 36 mmol/L
[2019-06-12 03:28] LABS: CULTURE INDICATED? NO
[2019-06-12] MEDS ORDERED: INSULIN LISPRO 100 UNIT/ML, 3ML VIAL SQ-INSULIN ONE (03:30)
[2019-06-12] MEDS: INSULIN LISPRO 100 UNITS/ML, PEN SQ-INSULIN SCH ×5 (03:41→20:07)
[2019-06-12 05:04] VITALS: BP 189/120
[2019-06-12] MEDS: HEPARIN 5,000 UNITS/ML, 1ML SQ SCH ×3 (05:05→19:58)
[2019-06-12] MEDS: SODIUM CHLORIDE 0.9% 1,000 ML IV SCH ×3 (05:05→19:20)
[2019-06-12 05:33] LABS: MEAN CORPUSCULAR HEMOGLOBIN 29.3 pg (27.5-34.5); MEAN CORPUSCULAR HGB CONC 33.4 g/dL (33.2-36.2); MEAN CORPUSCULAR VOLUME 87.8 fL (81-97); MEAN PLATELET VOLUME 9.8 fL (7.4-10.4); PLATELET COUNT 278 x10^3/uL (130-400); RED BLOOD COUNT 4.84 x10^6/uL (4.38-5.82); RED CELL DISTRIBUTION WIDTH 14.1 % (9.4-14.8)
[2019-06-12 05:40] LABS: ALBUMIN 3.5 g/dL (3.4-5.0); ANION GAP 9 mmol/L (5-15); CALCIUM 8.8 mg/dL (8.5-10.1); CHLORIDE 109 mmol/L (98-107)
[2019-06-12 05:43] LABS: ALANINE AMINOTRANSFERASE 18 U/L (12-78); ALKALINE PHOSPHATASE 124 U/L (45-117); BILIRUBIN,TOTAL 0.5 mg/dL (0.2-1.0); CREATININE 3.49 mg/dL (0.7-1.3); TOTAL PROTEIN 7.3 g/dL (6.4-8.2)
[2019-06-12 06:15] LABS: MD YES
[2019-06-12 06:18] LABS: <RBC MORPHOLOGY> NORMAL; LYMPH#(MANUAL) 2.74 x10^3/uL (1-3.4); LYMPHS% (MANUAL) 12 % (22-44); MONOS#(MANUAL) 1.37 x10^3/uL (0.3-2.7); MONOS% (MANUAL) 6 % (2-9); SEGS% (MANUAL) 82 % (42-75)
[2019-06-12 06:19] LABS: <PLATELET ESTIMATE> ADEQUATE
[2019-06-12 06:20] LABS: <PLT MORPHOLOGY> NORMAL PLT MORPH
[2019-06-12 07:47] VITALS: BP 183/114
[2019-06-12] MEDS: AMLODIPINE 10 MG TAB PO SCH (08:26)
[2019-06-12] MEDS: METOPROLOL TARTRATE 25 MG TAB PO SCH ×2 (08:26→20:06)
[2019-06-12] MEDS: OXYcodone IR 5MG TABLET PO PRN ×2 (08:34→20:06)
[2019-06-12 14:55] VITALS: BP 174/103
[2019-06-12] MEDS ORDERED: SODIUM CHLORIDE 0.9% 1,000ML IVBOLUS ONE (17:00)
[2019-06-12 19:51] VITALS: BP 186/112
[2019-06-12 19:57] VITALS: BP 143/78
[2019-06-13 01:15] VITALS: BP 154/94
[2019-06-13] MEDS: SODIUM CHLORIDE 0.9% 1,000 ML IV SCH ×4 (02:00→21:33)
[2019-06-13 05:11] LABS: BASOPHILS % (AUTO) 0 % (0-1); EOSINOPHILS # (AUTO) 0.02 x10^3/uL (0-0.4); EOSINOPHILS % (AUTO) 0 % (1-7); LYMPHOCYTES # (AUTO) 1.64 x10^3/uL (1-3.4); LYMPHOCYTES % (AUTO) 13 % (22-44); MD NO; MEAN CORPUSCULAR HEMOGLOBIN 29.6 pg (27.5-34.5); MEAN CORPUSCULAR HGB CONC 33.3 g/dL (33.2-36.2); MEAN CORPUSCULAR VOLUME 89.1 fL (81-97); MEAN PLATELET VOLUME 9.2 fL (7.4-10.4); MONOCYTES # (AUTO) 0.98 x10^3/uL (0.2-0.8); MONOCYTES % (AUTO) 8 % (2-9); NEUTROPHILS # (AUTO) 9.76 x10^3/uL (1.8-6.8); NEUTROPHILS % (AUTO) 79 % (42-75); PLATELET COUNT 238 x10^3/uL (130-400); RED BLOOD COUNT 4.39 x10^6/uL (4.38-5.82); RED CELL DISTRIBUTION WIDTH 14.3 % (9.4-14.8)
[2019-06-13 05:25] LABS: ALBUMIN 2.9 g/dL (3.4-5.0); ANION GAP 8 mmol/L (5-15); CALCIUM 7.9 mg/dL (8.5-10.1); CHLORIDE 109 mmol/L (98-107)
[2019-06-13 05:26] LABS: CREATININE 2.06 mg/dL (0.7-1.3)
[2019-06-13] MEDS: HEPARIN 5,000 UNITS/ML, 1ML SQ SCH ×3 (05:30→21:27)
[2019-06-13 07:45] VITALS: BP 167/101
[2019-06-13] MEDS: INSULIN LISPRO 100 UNITS/ML, PEN SQ-INSULIN SCH ×4 (07:56→21:24)
[2019-06-13] MEDS: METOPROLOL TARTRATE 25 MG TAB PO SCH ×2 (08:17→21:23)
[2019-06-13] MEDS: AMLODIPINE 10 MG TAB PO SCH (08:17)
[2019-06-13] MEDS: INSULIN NPH HUMAN 100 UNIT/ML, 3ML VIAL SQ-INSULIN SCH ×2 (09:14→21:24)
[2019-06-13 13:08] VITALS: BP 156/102
[2019-06-13 20:07] VITALS: BP 177/94
[2019-06-13] MEDS: OXYcodone IR 5MG TABLET PO PRN (21:23)
[2019-06-13] MEDS ORDERED: INSULIN LISPRO 100 UNIT/ML, 3ML VIAL SQ-INSULIN ONE (21:30)
[2019-06-14] MEDS ORDERED: GLUCAGON 1 MG IM PRN (01:30)
[2019-06-14] MEDS ORDERED: DEXTROSE 4 GM TAB.CHEW PO PRN (01:30)
[2019-06-14] MEDS ORDERED: DEXTROSE 50%, 50ML SYRINGE IVPush PRN (01:30)
[2019-06-14 02:00] VITALS: BP 163/117
[2019-06-14] MEDS: SODIUM CHLORIDE 0.9% 1,000 ML IV SCH (03:40)
[2019-06-14] MEDS: HEPARIN 5,000 UNITS/ML, 1ML SQ SCH (04:11)
[2019-06-14 06:28] VITALS: BP 173/103
[2019-06-14] MEDS: AMLODIPINE 10 MG TAB PO SCH (07:55)
[2019-06-14] MEDS: METOPROLOL TARTRATE 25 MG TAB PO SCH (07:55)
[2019-06-14] MEDS: INSULIN LISPRO 100 UNITS/ML, PEN SQ-INSULIN SCH (07:55)
[2019-06-14 08:14] VITALS: BP 177/118
[2019-06-14 08:57] VITALS: BP 168/103
[2019-06-14] MEDS ORDERED: SODIUM CHLORIDE FLUSH 10ML SYR IVF SCH (09:00)
[2019-06-14] MEDS: INSULIN NPH HUMAN 100 UNIT/ML, 3ML VIAL SQ-INSULIN SCH (09:40)
[2019-06-14] MEDS ORDERED: ONDA4TAB7 PO (09:44)
[2019-06-14] MEDS ORDERED: METO25TA91 PO (11:48)
== END 2019-06-14 11:24 | disposition home or self-care (01) | DRG 469 ==
LOC: ED 19:58 → SUATTDRO 21:00 → EDIP 23:53 → 4WST 06-12 00:01
PROVIDERS: ADMIT Internal Medicine; ATTEND Family Medicine
DX: N17.0 Acute kidney failure with tubular necrosis (principal); E10.69 Type 1 diabetes mellitus with other specified complication; E10.22 Type 1 diabetes mellitus with diabetic chronic kidney disease; K31.84 Gastroparesis; E10.43 Type 1 diabetes mellitus with diabetic autonomic (poly)neuropathy; E83.52 Hypercalcemia; D72.829 Elevated white blood cell count, unspecified; E87.1 Hypo-osmolality and hyponatremia; E86.0 Dehydration; F12.90 Cannabis use, unspecified, uncomplicated; F17.210 Nicotine dependence, cigarettes, uncomplicated; I12.9 Hypertensive chronic kidney disease with stage 1 through stage 4 chronic kidney disease, or unspecified chronic kidney disease; I16.1 Hypertensive emergency; N18.3 Chronic kidney disease, stage 3 (moderate); Z79.4 Long term (current) use of insulin; Z83.3 Family history of diabetes mellitus; Z91.19 Patient's noncompliance with other medical treatment and regimen; Z88.0 Allergy status to penicillin; Z79.899 Other long term (current) drug therapy
CPT/HCPCS: 36415; 71045; 74176; 80053; 80069; 80307; 81001; 82010; 82436; 82962; 83690; 83735; 84100; 84133; 84300; 85025; 96374; 96375; 96376; 99285; G0378; J1815; J2405; J0360; J1817; J2270; J7030

== ENCOUNTER 2019-07-23 13:06 | Inpatient (IN) | payer MEDICAID ==
[~2019-07-23] VITALS: Ht 177.8 cm; Wt 70.6 kg
[~2019-07-23 13:06] MED LIST changes: +ONDA4TAB7 PO
[2019-07-23] MEDS ORDERED: FAMOTIDINE 20 MG/2 ML ONE (14:17)
[2019-07-23] MEDS ORDERED: HALOPERIDOL 5 MG/ML ONE ×2 (14:17→17:01)
[2019-07-23] MEDS ORDERED: METOCLOPRAMIDE 5 MG/ML, 2ML ONE ×2 (14:17→17:01)
[2019-07-23] MEDS ORDERED: SODIUM CHLORIDE 0.9% 1,000ML IVBOLUS ONE ×3 (14:30→17:00)
[2019-07-23] MEDS ORDERED: FAMOTIDINE 20 MG/2 ML IV ONE (14:30)
[2019-07-23] MEDS ORDERED: METOCLOPRAMIDE 5 MG/ML, 2ML IVPush ONE ×2 (14:30→16:30)
[2019-07-23] MEDS ORDERED: SODIUM CHLORIDE FLUSH 10ML SYR IVF ONE (14:30)
[2019-07-23] MEDS ORDERED: HALOPERIDOL 5 MG/ML IV ONE ×2 (14:30→16:30)
[2019-07-23 14:40] LABS: BASOPHILS # (AUTO) 0.07 x10^3/uL (0-0.1); BASOPHILS % (AUTO) 1 % (0-1); EOSINOPHILS # (AUTO) 0.26 x10^3/uL (0-0.4); EOSINOPHILS % (AUTO) 2 % (1-7); LYMPHOCYTES # (AUTO) 1.87 x10^3/uL (1-3.4); LYMPHOCYTES % (AUTO) 14 % (22-44); MD NO; MEAN CORPUSCULAR HEMOGLOBIN 29.5 pg (27.5-34.5); MEAN CORPUSCULAR VOLUME 89.2 fL (81-97); MEAN PLATELET VOLUME 9.5 fL (7.4-10.4); MONOCYTES # (AUTO) 0.66 x10^3/uL (0.2-0.8); MONOCYTES % (AUTO) 5 % (2-9); NEUTROPHILS # (AUTO) 10.95 x10^3/uL (1.8-6.8); NEUTROPHILS % (AUTO) 79 % (42-75); PLATELET COUNT 280 x10^3/uL (130-400); RED BLOOD COUNT 5.44 x10^6/uL (4.38-5.82); RED CELL DISTRIBUTION WIDTH 13.9 % (9.4-14.8)
[2019-07-23 14:53] LABS: ALANINE AMINOTRANSFERASE 16 U/L (12-78); ALBUMIN 4.1 g/dL (3.4-5.0); ANION GAP 9 mmol/L (5-15); CALCIUM 9.4 mg/dL (8.5-10.1); CHLORIDE 104 mmol/L (98-107); CREATININE 3.76 mg/dL (0.7-1.3)
[2019-07-23 14:55] LABS: ALKALINE PHOSPHATASE 129 U/L (45-117); BILIRUBIN,TOTAL 0.5 mg/dL (0.2-1.0); TOTAL PROTEIN 8.4 g/dL (6.4-8.2)
--- NOTE | 2019-07-23 15:12 | NUR ---
PT STATES HE CANOT PROVIDE URINE SAMPLE RIGHT NOW, REFUSING STRAIGHT CATH
--- NOTE | 2019-07-23 15:38 | NUR ---
PT RESTING IN [facility], STATES HE FEELS BETTER. STILL CANNOT PEE.
--- NOTE | 2019-07-23 15:49 | NUR ---
VINCENZO SENT TO PHARMACY FOR EYE DROPS
[2019-07-23 16:05] LABS: ACETONE, SERUM Trace (Negative)
--- NOTE | 2019-07-23 16:40 | NUR ---
ADMITTING MD AT BEDSIDE
[2019-07-23] MEDS ORDERED: GABAPENTIN 300 MG CAPSULE PO PRN (17:00)
[2019-07-23] MEDS ORDERED: ONDANSETRON ODT 4 MG PO PRN (17:00)
[2019-07-23] MEDS ORDERED: ACETAMINOPHEN 325 MG TABLET PO PRN (17:00)
[2019-07-23] MEDS ORDERED: morphine SULFATE 10 MG/ML, 1ML IVPush PRN (17:00)
[2019-07-23] MEDS ORDERED: KETOROLAC 30 MG/1 ML IV PRN (17:00)
[2019-07-23] MEDS ORDERED: ONDANSETRON 2MG/ML, 2ML IVPush PRN (17:00)
[2019-07-23] MEDS ORDERED: GLUCAGON 1 MG IM PRN (17:00)
[2019-07-23] MEDS ORDERED: DEXTROSE 50%, 50ML SYRINGE IVPush PRN (17:00)
[2019-07-23] MEDS ORDERED: BACLOFEN 10 MG TABLET PO PRN (17:00)
[2019-07-23] MEDS ORDERED: hydrALAzine 20 MG/ML, 1ML IVPush PRN (17:00)
[2019-07-23] MEDS ORDERED: DEXTROSE 4 GM TAB.CHEW PO PRN (17:00)
--- NOTE | 2019-07-23 17:53 | NUR ---
REPORT TO WILLIAM ASHTON
[2019-07-23 18:32] VITALS: BP 189/99
[2019-07-23 18:55] VITALS: BP 132/75
[2019-07-23] MEDS: SODIUM CHLORIDE FLUSH 10ML SYR IVF SCH (19:22)
[2019-07-23] MEDS: INSULIN NPH HUMAN 100 UNIT/ML, 3ML VIAL SQ-INSULIN SCH (20:31)
[2019-07-23] MEDS: INSULIN LISPRO 100 UNITS/ML, PEN SQ-INSULIN SCH ×2 (20:32→21:00)
[2019-07-23] MEDS: METOPROLOL TARTRATE 100 MG TAB PO SCH (20:57)
[2019-07-23] MEDS ORDERED: BISACODYL 10 MG SUPP PR ONE (21:00)
[2019-07-23] MEDS ORDERED: METOCLOPRAMIDE 5 MG/ML, 2ML IVPush SCH (21:00)
[2019-07-23] MEDS ORDERED: METOPROLOL TARTRATE 25 MG TAB PO SCH (21:00)
[2019-07-23] MEDS: NS + 20MEQ KCL 1,000 ML IV SCH (21:33)
[2019-07-24 01:44] VITALS: BP 160/92
[2019-07-24 04:24] LABS: MICROSCOPIC AUTO
[2019-07-24 04:32] LABS: CULTURE INDICATED? NO
[2019-07-24] MEDS: NS + 20MEQ KCL 1,000 ML IV SCH ×3 (05:39→22:38)
[2019-07-24] MEDS: PANTOPRAZOLE 40MG TABLET PO SCH ×2 (06:37→16:10)
[2019-07-24 06:49] VITALS: BP 159/99
[2019-07-24] MEDS: METOPROLOL TARTRATE 100 MG TAB PO SCH ×2 (08:30→22:38)
[2019-07-24] MEDS: INSULIN LISPRO 100 UNITS/ML, PEN SQ-INSULIN SCH ×4 (08:30→22:38)
[2019-07-24] MEDS: AMLODIPINE 10 MG TAB PO SCH (08:30)
[2019-07-24] MEDS: INSULIN NPH HUMAN 100 UNIT/ML, 3ML VIAL SQ-INSULIN SCH ×2 (08:31→22:37)
[2019-07-24] MEDS: BISACODYL 10 MG SUPP PR SCH (08:34)
[2019-07-24] MEDS: SODIUM CHLORIDE FLUSH 10ML SYR IVF SCH ×2 (08:36→22:39)
[2019-07-24 08:38] LABS: BASOPHILS # (AUTO) 0.05 x10^3/uL (0-0.1); BASOPHILS % (AUTO) 1 % (0-1); EOSINOPHILS % (AUTO) 0 % (1-7); LYMPHOCYTES # (AUTO) 1.29 x10^3/uL (1-3.4); LYMPHOCYTES % (AUTO) 13 % (22-44); MD NO; MEAN CORPUSCULAR HEMOGLOBIN 29.8 pg (27.5-34.5); MEAN CORPUSCULAR HGB CONC 33.6 g/dL (33.2-36.2); MEAN CORPUSCULAR VOLUME 88.6 fL (81-97); MEAN PLATELET VOLUME 9.2 fL (7.4-10.4); MONOCYTES # (AUTO) 0.54 x10^3/uL (0.2-0.8); MONOCYTES % (AUTO) 6 % (2-9); NEUTROPHILS # (AUTO) 8.05 x10^3/uL (1.8-6.8); NEUTROPHILS % (AUTO) 81 % (42-75); PLATELET COUNT 223 x10^3/uL (130-400); RED BLOOD COUNT 4.34 x10^6/uL (4.38-5.82)
[2019-07-24 08:47] LABS: ANION GAP 8 mmol/L (5-15); CHLORIDE 110 mmol/L (98-107); CREATININE 2.59 mg/dL (0.7-1.3)
[2019-07-24] MEDS ORDERED: NICOTINE 21 MG/24 HR PATCH.TD24 TD ONE (09:00)
[2019-07-24 14:23] VITALS: BP 146/88
[2019-07-24 18:33] VITALS: BP 150/96
[2019-07-25 00:10] VITALS: BP 163/85
[2019-07-25] MEDS: PANTOPRAZOLE 40MG TABLET PO SCH (06:03)
[2019-07-25] MEDS: NS + 20MEQ KCL 1,000 ML IV SCH (06:03)
[2019-07-25 07:13] VITALS: BP 163/101
[2019-07-25] MEDS: METOPROLOL TARTRATE 100 MG TAB PO SCH (07:41)
[2019-07-25] MEDS: AMLODIPINE 10 MG TAB PO SCH (07:42)
[2019-07-25] MEDS: BISACODYL 10 MG SUPP PR SCH (07:47)
[2019-07-25] MEDS: SODIUM CHLORIDE FLUSH 10ML SYR IVF SCH (07:47)
[2019-07-25] MEDS: INSULIN LISPRO 100 UNITS/ML, PEN SQ-INSULIN SCH ×2 (08:37→11:00)
[2019-07-25] MEDS: INSULIN NPH HUMAN 100 UNIT/ML, 3ML VIAL SQ-INSULIN SCH (08:37)
[2019-07-25 11:10] LABS: BASOPHILS # (AUTO) 0.06 x10^3/uL (0-0.1); BASOPHILS % (AUTO) 1 % (0-1); EOSINOPHILS # (AUTO) 0.06 x10^3/uL (0-0.4); EOSINOPHILS % (AUTO) 1 % (1-7); LYMPHOCYTES # (AUTO) 0.99 x10^3/uL (1-3.4); LYMPHOCYTES % (AUTO) 12 % (22-44); MD NO; MEAN CORPUSCULAR HEMOGLOBIN 29.7 pg (27.5-34.5); MEAN CORPUSCULAR HGB CONC 33.7 g/dL (33.2-36.2); MEAN CORPUSCULAR VOLUME 87.9 fL (81-97); MEAN PLATELET VOLUME 9.3 fL (7.4-10.4); MONOCYTES # (AUTO) 0.45 x10^3/uL (0.2-0.8); MONOCYTES % (AUTO) 6 % (2-9); NEUTROPHILS # (AUTO) 6.71 x10^3/uL (1.8-6.8); NEUTROPHILS % (AUTO) 81 % (42-75); PLATELET COUNT 226 x10^3/uL (130-400); RED BLOOD COUNT 4.67 x10^6/uL (4.38-5.82); RED CELL DISTRIBUTION WIDTH 13.8 % (9.4-14.8)
[2019-07-25 12:15] LABS: ALANINE AMINOTRANSFERASE 12 U/L (12-78); ALBUMIN 3.2 g/dL (3.4-5.0); ANION GAP 4 mmol/L (5-15); CALCIUM 8.6 mg/dL (8.5-10.1); CHLORIDE 113 mmol/L (98-107); CREATININE 2.23 mg/dL (0.7-1.3)
[2019-07-25 12:17] LABS: ALKALINE PHOSPHATASE 104 U/L (45-117); BILIRUBIN,TOTAL 0.5 mg/dL (0.2-1.0); TOTAL PROTEIN 6.5 g/dL (6.4-8.2)
== END 2019-07-25 13:05 | disposition home or self-care (01) | DRG 48 ==
LOC: ED 15:44 → SUATTDRO 16:30 → EDIP 16:59 → 3N 18:56
PROVIDERS: ADMIT Hospitalist; ATTEND Hospitalist
DX: E10.43 Type 1 diabetes mellitus with diabetic autonomic (poly)neuropathy (principal); N17.0 Acute kidney failure with tubular necrosis; F12.188 Cannabis abuse with other cannabis-induced disorder; K31.84 Gastroparesis; E10.22 Type 1 diabetes mellitus with diabetic chronic kidney disease; I12.9 Hypertensive chronic kidney disease with stage 1 through stage 4 chronic kidney disease, or unspecified chronic kidney disease; E10.65 Type 1 diabetes mellitus with hyperglycemia; E86.0 Dehydration; F17.210 Nicotine dependence, cigarettes, uncomplicated; N18.3 Chronic kidney disease, stage 3 (moderate); Z79.4 Long term (current) use of insulin; Z83.3 Family history of diabetes mellitus; Z91.19 Patient's noncompliance with other medical treatment and regimen; Z88.0 Allergy status to penicillin
CPT/HCPCS: 36415; 71045; 74018; 74176; 80048; 80053; 81001; 82010; 82947; 82962; 83036; 83605; 83690; 85025; 93005; 96365; 96366; 96368; 96375; 99285; G0378; J1815; J3480; J1630; J2765; J3490; J7030

== ENCOUNTER 2019-12-17 20:35 | Emergency (ER) | payer MEDICAID ==
[~2019-12-17] VITALS: Ht 182.9 cm; Wt 63.6 kg
[~2019-12-17 20:35] MED LIST changes: -PANT40TA5 PO; +PANT40TA6 PO
--- NOTE | 2019-12-17 20:44 | NUR ---
44/M. Came via EMS. Reports issues with BS management. Hx of DM 1. Pt complains of LUQ abd pain, irregular BS, N/V x2 days. Today BS 550, took 7unit of Novolog at 1900. Recheck with EMS BS 438. Takes NPH 14 units in the AM & PM. Has not taken long acting tonight. Given 100mcg fentanyl, 100 thiamine, and 12.5 phenergan HAT MENDER via EMS. BP 148/43, HR 103, 97% RA. 20G R AC w/ fluids running per EMS.
[2019-12-17] MEDS ORDERED: PROMETHAZINE 25 MG/ML, 1ML IM ONE (21:30)
[2019-12-17] MEDS ORDERED: ONDANSETRON 2MG/ML, 2ML IVPush ONE (21:30)
[2019-12-17] MEDS ORDERED: SODIUM CHLORIDE 0.9% 1,000ML IVBOLUS ONE ×2 (21:30→22:30)
[2019-12-17] MEDS ORDERED: MORPHINE SULFATE 4 MG/ML, 1ML IVPush PRN (21:30)
[2019-12-17 21:40] LABS: PH, VENOUS 7.264 pH (7.320-7.420)
[2019-12-17 21:42] LABS: BASOPHILS # (AUTO) 0.02 x10^3/uL (0-0.1); BASOPHILS % (AUTO) 0 % (0-1); EOSINOPHILS # (AUTO) 0.05 x10^3/uL (0-0.4); EOSINOPHILS % (AUTO) 1 % (1-7); LYMPHOCYTES # (AUTO) 0.97 x10^3/uL (1-3.4); LYMPHOCYTES % (AUTO) 11 % (22-44); MD NO; MEAN CORPUSCULAR HEMOGLOBIN 29.5 pg (27.5-34.5); MEAN CORPUSCULAR HGB CONC 32.8 g/dL (33.2-36.2); MEAN PLATELET VOLUME 8.7 fL (7.4-10.4); MONOCYTES # (AUTO) 0.41 x10^3/uL (0.2-0.8); MONOCYTES % (AUTO) 5 % (2-9); NEUTROPHILS # (AUTO) 7.66 x10^3/uL (1.8-6.8); NEUTROPHILS % (AUTO) 84 % (42-75); PLATELET COUNT 253 x10^3/uL (130-400); RED BLOOD COUNT 4.95 x10^6/uL (4.38-5.82); RED CELL DISTRIBUTION WIDTH 14.1 % (9.4-14.8)
[2019-12-17 21:53] LABS: ALANINE AMINOTRANSFERASE 20 U/L (12-78); ALBUMIN 3.9 g/dL (3.4-5.0); ANION GAP 6 mmol/L (5-15); CALCIUM 9.3 mg/dL (8.5-10.1); CHLORIDE 104 mmol/L (98-107); CREATININE 2.61 mg/dL (0.7-1.3)
[2019-12-17 21:55] LABS: ACETONE, SERUM Negative (Negative)
[2019-12-17 21:58] LABS: ALKALINE PHOSPHATASE 109 U/L (45-117); BILIRUBIN,TOTAL 0.4 mg/dL (0.2-1.0); TOTAL PROTEIN 8.1 g/dL (6.4-8.2); TROPONIN I < 0.015 ng/mL (0.000-0.045)
[2019-12-17] MEDS ORDERED: MORPHINE SULFATE 4 MG/ML, 1ML ONE (22:00)
[2019-12-17] MEDS ORDERED: ONDANSETRON 2MG/ML, 2ML ONE (22:00)
[2019-12-17] MEDS ORDERED: hydrALAzine 20 MG/ML, 1ML IV ONE (22:30)
[2019-12-18 01:23] LABS: ALBUMIN 2.8 g/dL (3.4-5.0); ANION GAP 5 mmol/L (5-15); CALCIUM 8.1 mg/dL (8.5-10.1); CHLORIDE 111 mmol/L (98-107)
[2019-12-18 01:27] LABS: ALANINE AMINOTRANSFERASE 13 U/L (12-78); ALKALINE PHOSPHATASE 83 U/L (45-117); BILIRUBIN,TOTAL 0.2 mg/dL (0.2-1.0); CREATININE 2.24 mg/dL (0.7-1.3)
[2019-12-18 01:51] VITALS: BP 123/87
--- NOTE | 2019-12-18 01:51 | NUR ---
Pt ambulated for nurse. VS stable. Pt discharged.
== END 2019-12-18 02:12 | disposition home or self-care (01) ==
LOC: ED 21:05
DX: E10.65 Type 1 diabetes mellitus with hyperglycemia (principal); R11.2 Nausea with vomiting, unspecified; R10.32 Left lower quadrant pain; R94.31 Abnormal electrocardiogram [ECG] [EKG]; I10 Essential (primary) hypertension; Z87.891 Personal history of nicotine dependence
CPT/HCPCS: 36415; 80053; 82010; 82803; 82962; 83690; 83735; 84484; 85025; 93005; 96361; 96374; 96375; 99285; J2270; J2405; J7030

== ENCOUNTER 2020-03-24 20:15 | Inpatient (IN) | payer MEDICAID ==
[~2020-03-24] VITALS: Ht 182.9 cm; Wt 65.0 kg
--- NOTE | 2020-03-24 21:34 | NUR ---
Patient was getting blood draw in the lobby by lab. The phelotomist came to internal communications writer stating that he was complaint of "severe chest pain, and having a headache" When internal communications writer went to evaluate patient he was bend over in the wheelchair and moaning. Patient brought back in the triage room re vitaled and ekg done. Patient went back to waiting room
[2020-03-24 21:39] LABS: BASOPHILS % (AUTO) 1 % (0-1); EOSINOPHILS % (AUTO) 2 % (1-7); LYMPHOCYTES % (AUTO) 12 % (22-44); MD NO; MEAN CORPUSCULAR HEMOGLOBIN 28.7 pg (27.5-34.5); MEAN CORPUSCULAR HGB CONC 33.5 g/dL (33.2-36.2); MEAN PLATELET VOLUME 8.2 fL (7.4-10.4); MONOCYTES % (AUTO) 10 % (2-9); NEUTROPHILS % (AUTO) 75 % (42-75); PLATELET COUNT 439 x10^3/uL (130-400); RED BLOOD COUNT 3.24 x10^6/uL (4.38-5.82); RED CELL DISTRIBUTION WIDTH 15.7 % (9.4-14.8)
[2020-03-24 21:50] LABS: ALBUMIN 2.7 g/dL (3.4-5.0); ANION GAP 10 mmol/L (5-15); CALCIUM 8.2 mg/dL (8.5-10.1); CHLORIDE 103 mmol/L (98-107); CREATININE 4.16 mg/dL (0.7-1.3)
[2020-03-25] MEDS ORDERED: MORPHINE SULFATE 4 MG/ML, 1ML IVPush PRN ×2 (06:30→10:00)
[2020-03-25] MEDS ORDERED: CLINDAMYCIN PMX 600MG/50ML 50 ML IV ONE (06:30)
[2020-03-25] MEDS ORDERED: VANCOMYCIN PER PHARMACY MC PRN (06:30)
[2020-03-25] MEDS ORDERED: SODIUM CHLORIDE 0.9% 1,000ML IVBOLUS ONE (06:30)
[2020-03-25] MEDS ORDERED: CLINDAMYCIN PMX 600MG/50ML 50 ML ONE (06:35)
[2020-03-25] MEDS ORDERED: MORPHINE SULFATE 4 MG/ML, 1ML ONE (06:35)
[2020-03-25 06:38] LABS: ALANINE AMINOTRANSFERASE 22 U/L (12-78); ALBUMIN 2.6 g/dL (3.4-5.0)
[2020-03-25 06:40] LABS: ALKALINE PHOSPHATASE 170 U/L (45-117); BILIRUBIN,TOTAL 0.4 mg/dL (0.2-1.0); TOTAL PROTEIN 7.6 g/dL (6.4-8.2)
--- NOTE | 2020-03-25 06:40 | NUR ---
pt in room, and connected to cr monitor. in bed and gown. to tacos pt. piv started to left hand 18g x1 attempt. iv 1000ml bag hung to run over one hour. antibiotics and pain meds given. pt urine collected and sent to lab. resting comfortably at the moment. waiting on pharmacy to send the Vancomycin dose. side rails up x1 and call light within reach.
[2020-03-25 06:45] LABS: BILIRUBIN, DIRECT < 0.1 mg/dL (0.1-0.2); BILIRUBIN,INDIRECT 0.3 mg/dL (0.0-2.0)
[2020-03-25 06:49] LABS: MICROSCOPIC INDICATED
--- NOTE | 2020-03-25 06:58 | NUR ---
pt care and report transferred to day shift RN.
[2020-03-25] MEDS ORDERED: VANCOMYCIN 1,500 MG in SODIUM CHLORIDE 0.9% 250 ML IV ONE (07:00)
--- NOTE | 2020-03-25 07:30 | NUR ---
PT GIVEN IV ABX. PT C/O NAUSEA AND DRY HEAVES. WILL INFORM ERP.
[2020-03-25] MEDS ORDERED: ONDANSETRON 2MG/ML, 2ML ONE (07:42)
[2020-03-25] MEDS ORDERED: ONDANSETRON 2MG/ML, 2ML IVPush ONE (08:00)
--- NOTE | 2020-03-25 08:45 | NUR ---
REPORT GIVEN TO VAMSHI
[2020-03-25] MEDS ORDERED: INSULIN SINGLE DOSE, ER ONE (08:51)
[2020-03-25] MEDS ORDERED: INSULIN REGULAR 100 UNITS/ML, 3ML VIAL SQ-INSULIN ONE (09:00)
[2020-03-25 09:43] VITALS: BP 160/103
[2020-03-25] MEDS: HEPARIN 5,000 UNITS/ML, 1ML SQ SCH ×2 (11:00→18:26)
[2020-03-25] MEDS ORDERED: METOCLOPRAMIDE 5 MG/ML, 2ML IVPush PRN (11:00)
[2020-03-25] MEDS ORDERED: hydrALAzine 20 MG/ML, 1ML IVPush PRN (11:00)
[2020-03-25] MEDS ORDERED: ACETAMINOPHEN 325 MG TABLET PO PRN (11:00)
[2020-03-25 11:08] LABS: HCT (SEDRATE) 29.1 % (39.2-51.8)
[2020-03-25 11:23] LABS: C-REACTIVE PROTEIN, QUANT 1.4 mg/dL (0.02-0.49)
[2020-03-25] MEDS: SODIUM CHLORIDE 0.9% 100 ML IV SCH ×3 (12:50→13:18)
[2020-03-25] MEDS: DAPTOMYCIN 400 MG in SODIUM CHLORIDE 0.9% 100 ML IVPB SCH (13:16)
[2020-03-25] MEDS: ONDANSETRON 2MG/ML, 2ML IVPush PRN ×2 (13:17→18:22)
[2020-03-25] MEDS: HYDROcodone/APAP 5/325 TABLET PO PRN ×4 (13:18→22:34)
[2020-03-25 14:18] VITALS: BP 160/83
[2020-03-25] MEDS: INSULIN LISPRO 100 UNITS/ML, PEN SQ-INSULIN SCH ×3 (14:20→21:24)
[2020-03-25] MEDS: PANTOPRAZOLE 40MG TABLET PO SCH (16:00)
[2020-03-25] MEDS ORDERED: FUROSEMIDE 80 MG TABLET PO SCH (17:00)
[2020-03-25 17:49] VITALS: BP 148/99
[2020-03-25] MEDS: METOPROLOL TARTRATE 50 MG TAB PO SCH (18:22)
[2020-03-25 19:15] VITALS: BP 158/100
[2020-03-25] MEDS: SODIUM CHLORIDE 0.9% 1,000 ML IV SCH (20:00)
[2020-03-25] MEDS ORDERED: METOPROLOL TARTRATE 100 MG TAB PO SCH (21:00)
[2020-03-25] MEDS: INSULIN NPH HUMAN 100 UNIT/ML, 3ML VIAL SQ-INSULIN SCH (23:43)
[2020-03-26 01:42] VITALS: BP 147/101
[2020-03-26] MEDS: HEPARIN 5,000 UNITS/ML, 1ML SQ SCH ×3 (03:00→17:15)
[2020-03-26 06:01] LABS: BASOPHILS % (AUTO) 2 % (0-1); EOSINOPHILS % (AUTO) 1 % (1-7); LYMPHOCYTES % (AUTO) 15 % (22-44); MEAN CORPUSCULAR HEMOGLOBIN 28.7 pg (27.5-34.5); MEAN CORPUSCULAR HGB CONC 33.8 g/dL (33.2-36.2); MEAN PLATELET VOLUME 7.9 fL (7.4-10.4); MONOCYTES % (AUTO) 9 % (2-9); NEUTROPHILS % (AUTO) 73 % (42-75); PLATELET COUNT 412 x10^3/uL (130-400); RED BLOOD COUNT 3.05 x10^6/uL (4.38-5.82); RED CELL DISTRIBUTION WIDTH 15.6 % (9.4-14.8)
[2020-03-26 06:03] LABS: MD NO
[2020-03-26 06:15] LABS: CHLORIDE 109 mmol/L (98-107)
[2020-03-26 06:23] LABS: ANION GAP 9 mmol/L (5-15); CALCIUM 8.1 mg/dL (8.5-10.1); CHOL/HDL RATIO 3.6; CHOLESTEROL, TOTAL 134 mg/dL (140-239); CREATININE 3.35 mg/dL (0.7-1.3); HDL CHOL % 28 % (26-37); HDL CHOLESTEROL (DIRECT) 37 mg/dL (40-60); LDL CHOLESTEROL,CALCULATED 66 mg/dL (54-169); LDL/HDL RATIO 1.8 (0.5-3.0); TRIGLYCERIDES 153 mg/dL (50-200); VLDL CHOLESTEROL 31 mg/dL (0-25)
[2020-03-26] MEDS: METOPROLOL TARTRATE 50 MG TAB PO SCH ×2 (06:33→17:14)
[2020-03-26] MEDS: PANTOPRAZOLE 40MG TABLET PO SCH ×2 (06:33→16:00)
[2020-03-26 06:52] VITALS: BP 169/95
[2020-03-26] MEDS: INSULIN LISPRO 100 UNITS/ML, PEN SQ-INSULIN SCH ×4 (07:00→21:37)
[2020-03-26] MEDS: LOSARTAN 100 MG TAB PO SCH (08:24)
[2020-03-26] MEDS: FLUOXETINE HCL 20 MG CAPSULE PO SCH (08:25)
[2020-03-26] MEDS: AMLODIPINE 10 MG TAB PO SCH (08:25)
[2020-03-26] MEDS: SODIUM CHLORIDE 0.9% 1,000 ML IV SCH ×2 (08:25→22:40)
[2020-03-26] MEDS: HYDROcodone/APAP 5/325 TABLET PO PRN ×4 (08:25→21:03)
[2020-03-26] MEDS: INSULIN NPH HUMAN 100 UNIT/ML, 3ML VIAL SQ-INSULIN SCH ×2 (08:51→21:39)
[2020-03-26 13:55] VITALS: BP 169/91
[2020-03-26] MEDS ORDERED: METOCLOPRAMIDE 5 MG/ML, 2ML IVPush PRN (15:47)
[2020-03-26 16:20] VITALS: BP 154/68
[2020-03-26 19:41] VITALS: BP 124/75
[2020-03-26] MEDS ORDERED: DEXTROSE 4 GM TAB.CHEW PO PRN (21:30)
[2020-03-26] MEDS ORDERED: DEXTROSE 50%, 50ML SYRINGE IVPush PRN (21:30)
[2020-03-26] MEDS ORDERED: GLUCAGON 1 MG IM PRN (21:30)
[2020-03-26 21:41] VITALS: BP 151/83
[2020-03-27 01:48] VITALS: BP 146/81
[2020-03-27] MEDS: HEPARIN 5,000 UNITS/ML, 1ML SQ SCH ×3 (02:42→17:02)
[2020-03-27] MEDS: HYDROcodone/APAP 5/325 TABLET PO PRN ×4 (04:51→21:29)
[2020-03-27 05:21] LABS: BASOPHILS % (AUTO) 2 % (0-1); EOSINOPHILS % (AUTO) 3 % (1-7); LYMPHOCYTES % (AUTO) 21 % (22-44); MEAN CORPUSCULAR HEMOGLOBIN 28.9 pg (27.5-34.5); MEAN CORPUSCULAR HGB CONC 33.6 g/dL (33.2-36.2); MEAN PLATELET VOLUME 7.8 fL (7.4-10.4); MONOCYTES % (AUTO) 11 % (2-9); NEUTROPHILS % (AUTO) 64 % (42-75); PLATELET COUNT 376 x10^3/uL (130-400); RED BLOOD COUNT 2.89 x10^6/uL (4.38-5.82); RED CELL DISTRIBUTION WIDTH 15.8 % (9.4-14.8)
[2020-03-27 05:24] LABS: MD NO
[2020-03-27 05:38] LABS: ANION GAP 6 mmol/L (5-15); CALCIUM 7.7 mg/dL (8.5-10.1); CHLORIDE 108 mmol/L (98-107); CREATININE 3.22 mg/dL (0.7-1.3)
[2020-03-27 06:35] VITALS: BP 163/83
[2020-03-27] MEDS: METOPROLOL TARTRATE 50 MG TAB PO SCH ×2 (06:36→16:32)
[2020-03-27] MEDS: PANTOPRAZOLE 40MG TABLET PO SCH ×2 (06:36→16:32)
[2020-03-27] MEDS: INSULIN LISPRO 100 UNITS/ML, PEN SQ-INSULIN SCH ×4 (07:00→21:00)
[2020-03-27 07:36] VITALS: BP 152/79
[2020-03-27] MEDS: SODIUM CHLORIDE FLUSH 10ML SYR IVF SCH ×2 (09:00→21:00)
[2020-03-27] MEDS: AMLODIPINE 10 MG TAB PO SCH (09:27)
[2020-03-27] MEDS: FLUOXETINE HCL 20 MG CAPSULE PO SCH (09:27)
[2020-03-27] MEDS: INSULIN NPH HUMAN 100 UNIT/ML, 3ML VIAL SQ-INSULIN SCH ×2 (09:28→21:34)
[2020-03-27] MEDS: LOSARTAN 100 MG TAB PO SCH (09:28)
[2020-03-27] MEDS: DAPTOMYCIN 400 MG in SODIUM CHLORIDE 0.9% 100 ML IVPB SCH (12:08)
[2020-03-27 12:30] VITALS: BP 148/90
[2020-03-27] MEDS: SODIUM CHLORIDE 0.9% 1,000 ML IV SCH (13:18)
[2020-03-27 20:25] VITALS: BP 153/84
[2020-03-28] MEDS: SODIUM CHLORIDE 0.9% 1,000 ML IV SCH (01:20)
[2020-03-28 01:48] VITALS: BP 152/85
[2020-03-28] MEDS: HEPARIN 5,000 UNITS/ML, 1ML SQ SCH ×3 (02:44→18:49)
[2020-03-28] MEDS: PANTOPRAZOLE 40MG TABLET PO SCH ×3 (06:00→16:56)
[2020-03-28] MEDS: METOPROLOL TARTRATE 50 MG TAB PO SCH ×2 (06:21→18:47)
[2020-03-28] MEDS: HYDROcodone/APAP 5/325 TABLET PO PRN ×5 (06:25→21:58)
[2020-03-28 06:30] VITALS: BP 169/90
[2020-03-28 08:14] LABS: BASOPHILS % (AUTO) 1 % (0-1); EOSINOPHILS % (AUTO) 2 % (1-7); LYMPHOCYTES % (AUTO) 17 % (22-44); MEAN CORPUSCULAR HEMOGLOBIN 28.6 pg (27.5-34.5); MEAN CORPUSCULAR HGB CONC 33.4 g/dL (33.2-36.2); MEAN PLATELET VOLUME 8.1 fL (7.4-10.4); MONOCYTES % (AUTO) 10 % (2-9); NEUTROPHILS % (AUTO) 70 % (42-75); PLATELET COUNT 401 x10^3/uL (130-400); RED BLOOD COUNT 2.96 x10^6/uL (4.38-5.82); RED CELL DISTRIBUTION WIDTH 15.7 % (9.4-14.8)
[2020-03-28 08:25] LABS: ANION GAP 5 mmol/L (5-15); CALCIUM 7.7 mg/dL (8.5-10.1); CHLORIDE 107 mmol/L (98-107); CREATININE 3.03 mg/dL (0.7-1.3); MD NO
[2020-03-28] MEDS: SODIUM CHLORIDE FLUSH 10ML SYR IVF SCH ×2 (09:00→20:55)
[2020-03-28] MEDS: FLUOXETINE HCL 20 MG CAPSULE PO SCH (10:02)
[2020-03-28] MEDS: LOSARTAN 100 MG TAB PO SCH (10:03)
[2020-03-28] MEDS: AMLODIPINE 10 MG TAB PO SCH (10:03)
[2020-03-28] MEDS: INSULIN NPH HUMAN 100 UNIT/ML, 3ML VIAL SQ-INSULIN SCH ×2 (10:04→20:54)
[2020-03-28] MEDS: INSULIN LISPRO 100 UNITS/ML, PEN SQ-INSULIN SCH ×4 (10:04→20:55)
[2020-03-28 13:12] VITALS: BP 146/86
[2020-03-28 18:44] VITALS: BP 136/85
[2020-03-29] MEDS: HYDROcodone/APAP 5/325 TABLET PO PRN ×5 (02:10→22:55)
[2020-03-29] MEDS: HEPARIN 5,000 UNITS/ML, 1ML SQ SCH ×4 (02:14→23:43)
[2020-03-29] MEDS: PANTOPRAZOLE 40MG TABLET PO SCH ×2 (04:56→16:26)
[2020-03-29 06:26] VITALS: BP 167/86
[2020-03-29] MEDS: METOPROLOL TARTRATE 50 MG TAB PO SCH ×2 (06:26→16:25)
[2020-03-29 07:56] VITALS: BP 166/91
[2020-03-29] MEDS: FLUOXETINE HCL 20 MG CAPSULE PO SCH (08:11)
[2020-03-29] MEDS: INSULIN NPH HUMAN 100 UNIT/ML, 3ML VIAL SQ-INSULIN SCH ×2 (08:13→22:59)
[2020-03-29] MEDS: LOSARTAN 100 MG TAB PO SCH (08:13)
[2020-03-29] MEDS: AMLODIPINE 10 MG TAB PO SCH (08:13)
[2020-03-29] MEDS: INSULIN LISPRO 100 UNITS/ML, PEN SQ-INSULIN SCH ×4 (08:15→23:00)
[2020-03-29] MEDS: SODIUM CHLORIDE FLUSH 10ML SYR IVF SCH ×2 (08:16→21:00)
[2020-03-29 08:48] LABS: ANION GAP 5 mmol/L (5-15); CALCIUM 8.3 mg/dL (8.5-10.1); CHLORIDE 107 mmol/L (98-107); CREATININE 2.86 mg/dL (0.7-1.3)
[2020-03-29 12:48] VITALS: BP 137/83
[2020-03-29] MEDS: DAPTOMYCIN 260 MG in SODIUM CHLORIDE 0.9% 100 ML IV SCH (14:54)
[2020-03-29 21:00] VITALS: BP 144/86
[2020-03-30] MEDS: HYDROcodone/APAP 5/325 TABLET PO PRN ×5 (03:37→22:05)
[2020-03-30 05:37] LABS: BASOPHILS % (AUTO) 2 % (0-1); EOSINOPHILS % (AUTO) 2 % (1-7); HCT (SEDRATE) 25.1 % (39.2-51.8); LYMPHOCYTES % (AUTO) 16 % (22-44); MEAN CORPUSCULAR HEMOGLOBIN 28.7 pg (27.5-34.5); MEAN CORPUSCULAR HGB CONC 33.5 g/dL (33.2-36.2); MONOCYTES % (AUTO) 10 % (2-9); NEUTROPHILS % (AUTO) 70 % (42-75); PLATELET COUNT 369 x10^3/uL (130-400); RED BLOOD COUNT 2.98 x10^6/uL (4.38-5.82)
[2020-03-30 05:41] LABS: MD NO
[2020-03-30 05:49] LABS: ALBUMIN 2.4 g/dL (3.4-5.0); ANION GAP 5 mmol/L (5-15); CALCIUM 8.5 mg/dL (8.5-10.1); CHLORIDE 108 mmol/L (98-107)
[2020-03-30 05:54] LABS: ALANINE AMINOTRANSFERASE 59 U/L (12-78); ALKALINE PHOSPHATASE 224 U/L (45-117); BILIRUBIN,TOTAL 0.2 mg/dL (0.2-1.0); C-REACTIVE PROTEIN, QUANT 0.41 mg/dL (0.02-0.49); CREATINE KINASE, TOTAL 40 U/L (39-308); CREATININE 3.04 mg/dL (0.7-1.3); TOTAL PROTEIN 6.5 g/dL (6.4-8.2)
[2020-03-30] MEDS: PANTOPRAZOLE 40MG TABLET PO SCH ×2 (06:00→16:28)
[2020-03-30] MEDS: METOPROLOL TARTRATE 50 MG TAB PO SCH ×2 (06:38→16:28)
[2020-03-30 08:00] VITALS: BP 190/101
[2020-03-30] MEDS: INSULIN LISPRO 100 UNITS/ML, PEN SQ-INSULIN SCH ×4 (08:32→22:07)
[2020-03-30] MEDS: AMLODIPINE 10 MG TAB PO SCH (08:32)
[2020-03-30] MEDS: LOSARTAN 100 MG TAB PO SCH (08:32)
[2020-03-30] MEDS: FLUOXETINE HCL 20 MG CAPSULE PO SCH (08:33)
[2020-03-30] MEDS: INSULIN NPH HUMAN 100 UNIT/ML, 3ML VIAL SQ-INSULIN SCH (08:33)
[2020-03-30] MEDS: SODIUM CHLORIDE FLUSH 10ML SYR IVF SCH ×2 (09:00→21:00)
[2020-03-30] MEDS ORDERED: SODIUM CHLORIDE 0.9% 1,000 ML IV SCH (10:30)
[2020-03-30] MEDS: HEPARIN 5,000 UNITS/ML, 1ML SQ SCH ×2 (11:00→18:47)
[2020-03-30 12:43] VITALS: BP 153/89
[2020-03-30] MEDS: DAPTOMYCIN 260 MG in SODIUM CHLORIDE 0.9% 100 ML IV SCH (14:21)
[2020-03-30] MEDS: INSULIN REGULAR 100 UNITS/ML, 3ML VIAL SQ-INSULIN SCH ×2 (16:00→21:00)
[2020-03-30 19:46] VITALS: BP 148/84
[2020-03-31] MEDS: HEPARIN 5,000 UNITS/ML, 1ML SQ SCH ×3 (00:35→18:25)
[2020-03-31 01:48] VITALS: BP 149/79
[2020-03-31 04:54] LABS: ALBUMIN 2.3 g/dL (3.4-5.0); CHLORIDE 107 mmol/L (98-107)
[2020-03-31 04:57] LABS: ANION GAP 5 mmol/L (5-15)
[2020-03-31] MEDS: PANTOPRAZOLE 40MG TABLET PO SCH ×2 (06:17→16:09)
[2020-03-31] MEDS: HYDROcodone/APAP 5/325 TABLET PO PRN ×4 (06:17→20:34)
[2020-03-31] MEDS: METOPROLOL TARTRATE 50 MG TAB PO SCH ×2 (06:17→18:06)
[2020-03-31] MEDS ORDERED: SODIUM POLYSTYRENE SULFONATE ORAL SUSP PO ONE (06:30)
[2020-03-31 08:30] VITALS: BP 166/93
[2020-03-31] MEDS: FLUOXETINE HCL 20 MG CAPSULE PO SCH (08:49)
[2020-03-31] MEDS: INSULIN LISPRO 100 UNITS/ML, PEN SQ-INSULIN SCH ×6 (08:49→20:33)
[2020-03-31] MEDS: LOSARTAN 100 MG TAB PO SCH (08:50)
[2020-03-31] MEDS: SODIUM CHLORIDE FLUSH 10ML SYR IVF SCH ×2 (08:50→21:00)
[2020-03-31] MEDS: AMLODIPINE 10 MG TAB PO SCH (08:50)
[2020-03-31] MEDS: INSULIN NPH HUMAN 100 UNIT/ML, 3ML VIAL SQ-INSULIN SCH ×2 (08:59→20:34)
[2020-03-31] MEDS ORDERED: FUROSEMIDE 40 MG/4 ML IV ONE (09:00)
[2020-03-31] MEDS ORDERED: FUROSEMIDE 40 MG/4 ML ONE (09:00)
[2020-03-31 13:28] VITALS: BP 176/97
[2020-03-31] MEDS: DAPTOMYCIN 260 MG in SODIUM CHLORIDE 0.9% 100 ML IV SCH (14:17)
[2020-03-31 19:29] VITALS: BP 166/96
[2020-03-31] MEDS ORDERED: INSULIN LISPRO 100 UNIT/ML, 3ML VIAL SQ-INSULIN ONE (21:00)
[2020-04-01] MEDS: HYDROcodone/APAP 5/325 TABLET PO PRN ×5 (00:34→21:38)
[2020-04-01] MEDS: HEPARIN 5,000 UNITS/ML, 1ML SQ SCH ×3 (00:37→16:26)
[2020-04-01] MEDS: METOPROLOL TARTRATE 50 MG TAB PO SCH ×2 (06:31→16:23)
[2020-04-01] MEDS: PANTOPRAZOLE 40MG TABLET PO SCH ×2 (06:31→16:23)
[2020-04-01 08:00] VITALS: BP 187/102
[2020-04-01 08:13] LABS: ANION GAP 7 mmol/L (5-15); CALCIUM 8.3 mg/dL (8.5-10.1); CHLORIDE 104 mmol/L (98-107); CREATININE 3.43 mg/dL (0.7-1.3)
[2020-04-01] MEDS: LOSARTAN 100 MG TAB PO SCH (08:15)
[2020-04-01] MEDS: AMLODIPINE 10 MG TAB PO SCH (08:15)
[2020-04-01] MEDS: FLUOXETINE HCL 20 MG CAPSULE PO SCH (08:15)
[2020-04-01] MEDS: INSULIN NPH HUMAN 100 UNIT/ML, 3ML VIAL SQ-INSULIN SCH ×2 (08:17→21:52)
[2020-04-01] MEDS: INSULIN LISPRO 100 UNITS/ML, PEN SQ-INSULIN SCH ×4 (08:17→21:53)
[2020-04-01] MEDS: SODIUM CHLORIDE FLUSH 10ML SYR IVF SCH ×2 (08:17→21:48)
[2020-04-01 12:20] VITALS: BP 147/80
[2020-04-01] MEDS: DAPTOMYCIN 260 MG in SODIUM CHLORIDE 0.9% 100 ML IV SCH (14:10)
[2020-04-01 20:40] VITALS: BP 146/67
[2020-04-02] MEDS: HEPARIN 5,000 UNITS/ML, 1ML SQ SCH ×2 (01:10→11:00)
[2020-04-02 02:59] VITALS: BP 152/73
[2020-04-02 06:40] LABS: ANION GAP 8 mmol/L (5-15); CALCIUM 8.7 mg/dL (8.5-10.1); CHLORIDE 107 mmol/L (98-107); CREATININE 3.33 mg/dL (0.7-1.3)
[2020-04-02] MEDS: METOPROLOL TARTRATE 50 MG TAB PO SCH (06:56)
[2020-04-02] MEDS: PANTOPRAZOLE 40MG TABLET PO SCH ×2 (06:56→15:43)
[2020-04-02] MEDS: HYDROcodone/APAP 5/325 TABLET PO PRN ×3 (06:56→15:42)
[2020-04-02] MEDS: INSULIN LISPRO 100 UNITS/ML, PEN SQ-INSULIN SCH ×3 (07:00→15:43)
[2020-04-02 07:58] VITALS: BP 177/89
[2020-04-02] MEDS: INSULIN NPH HUMAN 100 UNIT/ML, 3ML VIAL SQ-INSULIN SCH (09:34)
[2020-04-02] MEDS: FLUOXETINE HCL 20 MG CAPSULE PO SCH (09:35)
[2020-04-02] MEDS: AMLODIPINE 10 MG TAB PO SCH (09:35)
[2020-04-02] MEDS: LOSARTAN 100 MG TAB PO SCH (09:35)
[2020-04-02] MEDS: SODIUM CHLORIDE FLUSH 10ML SYR IVF SCH (09:36)
[2020-04-02 13:40] VITALS: BP 166/99
[2020-04-02] MEDS ORDERED: CLIN300C9 PO (15:14)
[2020-04-02] MEDS ORDERED: HYDR-3237 PO (15:14)
[2020-04-03] MEDS ORDERED: DAPTOMYCIN 260 MG in SODIUM CHLORIDE 0.9% 100 ML IV SCH (14:00)
== END 2020-04-02 16:30 | disposition home or self-care (01) | DRG 282 ==
LOC: ED 03-25 06:36 → EDIP 03-25 07:31 → 4NE 03-25 09:24
PROVIDERS: ADMIT Family Medicine; ATTEND Internal Medicine
DX: K85.90 Acute pancreatitis without necrosis or infection, unspecified (principal); E10.43 Type 1 diabetes mellitus with diabetic autonomic (poly)neuropathy; I12.9 Hypertensive chronic kidney disease with stage 1 through stage 4 chronic kidney disease, or unspecified chronic kidney disease; N17.9 Acute kidney failure, unspecified; J81.1 Chronic pulmonary edema; N18.9 Chronic kidney disease, unspecified; Z87.01 Personal history of pneumonia (recurrent); E10.22 Type 1 diabetes mellitus with diabetic chronic kidney disease; E10.65 Type 1 diabetes mellitus with hyperglycemia; I82.501 Chronic embolism and thrombosis of unspecified deep veins of right lower extremity; F15.90 Other stimulant use, unspecified, uncomplicated; L03.011 Cellulitis of right finger; L03.113 Cellulitis of right upper limb; E86.0 Dehydration; F12.10 Cannabis abuse, uncomplicated; F41.9 Anxiety disorder, unspecified; N18.4 Chronic kidney disease, stage 4 (severe); Z53.20 Procedure and treatment not carried out because of patient's decision for unspecified reasons; Z86.14 Personal history of Methicillin resistant Staphylococcus aureus infection; Z87.891 Personal history of nicotine dependence; Z91.19 Patient's noncompliance with other medical treatment and regimen; E10.649 Type 1 diabetes mellitus with hypoglycemia without coma
CPT/HCPCS: 36415; 74150; 76770; 80048; 80053; 80061; 80069; 80076; 81001; 82040; 82550; 82947; 82962; 83036; 83605; 83690; 85025; 85651; 86140; 87040; 93005; 93970; 96365; 96367; 96375; 99285; G0378; J0878; J1815; J1940; J2405; J3370; J2270; J7030; J7050

== ENCOUNTER → 2020-04-04 | Outpatient (CLI) | payer MEDICAID ==
[~2020-04-04] MED LIST changes: +CLIN300C9 PO; +HYDR-3237 PO
== END | disposition home or self-care (01) ==
LOC: WOUND 13:01
PROVIDERS: ATTEND Internal Medicine
DX: T81.89XA Other complications of procedures, not elsewhere classified, initial encounter (principal); S61.441A Puncture wound with foreign body of right hand, initial encounter; L02.511 Cutaneous abscess of right hand; F19.10 Other psychoactive substance abuse, uncomplicated; E10.43 Type 1 diabetes mellitus with diabetic autonomic (poly)neuropathy; K31.84 Gastroparesis; F41.9 Anxiety disorder, unspecified; F15.90 Other stimulant use, unspecified, uncomplicated; F12.10 Cannabis abuse, uncomplicated; E10.65 Type 1 diabetes mellitus with hyperglycemia; E10.22 Type 1 diabetes mellitus with diabetic chronic kidney disease; I12.9 Hypertensive chronic kidney disease with stage 1 through stage 4 chronic kidney disease, or unspecified chronic kidney disease; N18.4 Chronic kidney disease, stage 4 (severe); N17.9 Acute kidney failure, unspecified; Z86.718 Personal history of other venous thrombosis and embolism; Z87.891 Personal history of nicotine dependence; Z86.14 Personal history of Methicillin resistant Staphylococcus aureus infection; Z79.4 Long term (current) use of insulin; X58.XXXA Exposure to other specified factors, initial encounter; Y93.89 Activity, other specified; Y92.89 Other specified places as the place of occurrence of the external cause; Y99.8 Other external cause status; Y83.8 Other surgical procedures as the cause of abnormal reaction of the patient, or of later complication, without mention of misadventure at the time of the procedure; Y92.238 Other place in hospital as the place of occurrence of the external cause
CPT/HCPCS: 97597; 99214

== ENCOUNTER 2020-04-11 15:25 | Inpatient (IN) | payer MEDICAID ==
[~2020-04-11] VITALS: Ht 182.9 cm; Wt 69.0 kg
--- NOTE | 2020-04-11 15:55 | NUR ---
PT BIB EMS FOR HYPERGLYCEMIA AND N/V. PT CURRENT BS >600 ON HOPSITAL GLUCOMETER. PT HAS HX OF DM1. TOOK 12U INSULING AFTER HIS HOME GLUCOMETER READ >600. DENIES CP. STATES SYMPTOMS HAVE BEEN PRESENT FOR 3 DAYS EMS GAVE 4MG ZOFRAN, BS 476
[2020-04-11] MEDS ORDERED: SODIUM CHLORIDE 0.9% 1,000ML IVBOLUS ONE ×2 (16:00→16:30)
[2020-04-11] MEDS ORDERED: ONDANSETRON 2MG/ML, 2ML ONE (16:13)
[2020-04-11 16:15] LABS: PH, VENOUS 7.345 pH (7.320-7.420)
[2020-04-11 16:17] LABS: BASOPHILS % (AUTO) 0 % (0-1); EOSINOPHILS % (AUTO) 0 % (1-7); LYMPHOCYTES % (AUTO) 5 % (22-44); MEAN CORPUSCULAR HEMOGLOBIN 27.7 pg (27.5-34.5); MEAN CORPUSCULAR HGB CONC 32.6 g/dL (33.2-36.2); MEAN PLATELET VOLUME 7.8 fL (7.4-10.4); MONOCYTES % (AUTO) 5 % (2-9); NEUTROPHILS % (AUTO) 89 % (42-75); PLATELET COUNT 388 x10^3/uL (130-400); RED BLOOD COUNT 2.97 x10^6/uL (4.38-5.82); RED CELL DISTRIBUTION WIDTH 15.5 % (9.4-14.8)
[2020-04-11 16:21] LABS: MD NO
[2020-04-11 16:28] LABS: ALANINE AMINOTRANSFERASE 73 U/L (12-78); ALBUMIN 2.6 g/dL (3.4-5.0); ANION GAP 12 mmol/L (5-15); CALCIUM 8.4 mg/dL (8.5-10.1); CHLORIDE 99 mmol/L (98-107); CREATININE 3.36 mg/dL (0.7-1.3)
[2020-04-11] MEDS ORDERED: ONDANSETRON 2MG/ML, 2ML IVPush ONE (16:30)
[2020-04-11 16:31] LABS: ALKALINE PHOSPHATASE 414 U/L (45-117); BILIRUBIN,TOTAL 0.3 mg/dL (0.2-1.0); TOTAL PROTEIN 7.2 g/dL (6.4-8.2)
[2020-04-11 16:40] LABS: ACETONE, SERUM Small (20mg/dL) (Negative)
[2020-04-11] MEDS ORDERED: hydrALAzine 20 MG/ML, 1ML IV ONE (17:00)
[2020-04-11] MEDS ORDERED: hydrALAzine 20 MG/ML, 1ML ONE (17:02)
[2020-04-11] MEDS ORDERED: PROMETHAZINE 25 MG/ML, 1ML IM ONE (17:30)
[2020-04-11] MEDS ORDERED: INSULIN SINGLE DOSE, ER ONE (17:43)
[2020-04-11] MEDS ORDERED: METOCLOPRAMIDE 5 MG/ML, 2ML ONE (17:44)
[2020-04-11] MEDS ORDERED: MORPHINE SULFATE 4 MG/ML, 1ML ONE (17:44)
[2020-04-11] MEDS ORDERED: DIPHENHYDRAMINE 50 MG/ML, 1ML ONE (17:44)
--- NOTE | 2020-04-11 17:47 | NUR ---
PT IN IMAGING. WILL MEDICATED WHEN BACK
[2020-04-11] MEDS ORDERED: DIPHENHYDRAMINE 50 MG/ML, 1ML IVPush ONE (18:00)
[2020-04-11] MEDS ORDERED: METOCLOPRAMIDE 5 MG/ML, 2ML IVPush ONE (18:00)
[2020-04-11] MEDS ORDERED: INSULIN REGULAR 100 UNITS/ML, 3ML VIAL SQ-INSULIN SCH (18:00)
[2020-04-11] MEDS ORDERED: MORPHINE SULFATE 4 MG/ML, 1ML IVPush ONE (18:00)
[2020-04-11] MEDS ORDERED: CEFTRIAXONE PMX 1GM/50ML 50 ML IVPB ONE (18:30)
--- NOTE | 2020-04-11 18:31 | NUR ---
PT MEDICATED AFTER MRI. PT SPO2 DROPPED TO 80 ON NC ON 3L. PT STATES HE WEARS 4L O2 AT HOME AND HAD PNEUMONIA, APPLIED 10 L NON REBREATHER. NOW 94%. MD AT BEDSIDE FOR ASSEMENT.
--- NOTE | 2020-04-11 18:36 | NUR ---
BLOOD CULTURES IN PROCESS, TO BE SWABBED FOR COVID
--- NOTE | 2020-04-11 18:55 | NUR ---
BEDSIDE REPORT RECEIVED FROM SANJAY ASHTON
[2020-04-11] MEDS ORDERED: CEFTRIAXONE PMX 1GM/50ML 50 ML ONE (18:57)
--- NOTE | 2020-04-11 18:57 | NUR ---
REPORT TO ANA MARIA.
[2020-04-11] MEDS ORDERED: DOXYCYCLINE 100 MG in DEXTROSE 5% 250 ML IV ONE (19:00)
--- NOTE | 2020-04-11 19:04 | NUR ---
PT SITTING UPRIGHT ON GURNEY, NAD, VSS. PT RESTING COMFORTABLY WITH EYES CLOSED. PT DENIES ANY NEEDS AT THIS TIME. CALL LIGHT IN REACH. ISOLATION PRECAUTIONS IN PLACE.
--- NOTE | 2020-04-11 20:15 | NUR ---
PT SITTING UPRIGHT ON GURQIAN, NAD, VSS. PT DENIES ANY NEEDS AT THIS TIME. CALL LIGHT IN REACH.
--- NOTE | 2020-04-11 20:56 | NUR ---
Pt to be admitted to [facility], room 495. Report called to ANNY ASHTON.
--- NOTE | 2020-04-11 21:20 | NUR ---
HOSPITALIST AT BEDSIDE
[2020-04-11 22:24] VITALS: BP 211/130
[2020-04-11] MEDS: HEPARIN 5,000 UNITS/ML, 1ML SQ SCH ×2 (23:00→23:37)
[2020-04-11] MEDS ORDERED: MELATONIN 5 MG TABLET PO PRN (23:00)
[2020-04-11] MEDS ORDERED: ONDANSETRON 2MG/ML, 2ML IVPush PRN (23:00)
[2020-04-11] MEDS ORDERED: DOCUSATE 100 MG CAPSULE PO PRN (23:00)
[2020-04-11] MEDS ORDERED: LIDODERM 5% PATCH TD PRN (23:00)
[2020-04-11] MEDS ORDERED: LACTATED RINGERS 1,000 ML IV SCH (23:00)
[2020-04-11] MEDS ORDERED: PHARMACY MAY ADJ FOR RENAL FX MC PRN (23:00)
[2020-04-11] MEDS: ONDANSETRON 2MG/ML, 2ML IVPush PRN (23:03)
[2020-04-11] MEDS: hydrALAzine 20 MG/ML, 1ML IVPush PRN (23:37)
[2020-04-12] MEDS: INSULIN LISPRO 100 UNITS/ML, PEN SQ-INSULIN SCH ×3 (00:44→10:20)
[2020-04-12 01:36] VITALS: BP 176/17
[2020-04-12] MEDS: hydrALAzine 20 MG/ML, 1ML IVPush PRN ×3 (03:35→16:54)
[2020-04-12] MEDS: ACETAMINOPHEN 325 MG TABLET PO PRN (03:35)
[2020-04-12] MEDS: DOXYCYCLINE 100 MG in DEXTROSE 5% 250 ML IV SCH ×2 (05:56→21:28)
[2020-04-12] MEDS: HEPARIN 5,000 UNITS/ML, 1ML SQ SCH ×3 (05:56→20:42)
[2020-04-12] MEDS: ONDANSETRON 2MG/ML, 2ML IVPush PRN ×2 (08:11→14:08)
[2020-04-12 08:42] LABS: BASOPHILS % (AUTO) 1 % (0-1); EOSINOPHILS % (AUTO) 0 % (1-7); LYMPHOCYTES % (AUTO) 6 % (22-44); MEAN CORPUSCULAR HEMOGLOBIN 27.6 pg (27.5-34.5); MEAN CORPUSCULAR HGB CONC 32.2 g/dL (33.2-36.2); MONOCYTES % (AUTO) 5 % (2-9); NEUTROPHILS % (AUTO) 89 % (42-75); PLATELET COUNT 442 x10^3/uL (130-400); RED BLOOD COUNT 3.45 x10^6/uL (4.38-5.82); RED CELL DISTRIBUTION WIDTH 16.5 % (9.4-14.8)
[2020-04-12 08:52] VITALS: BP 161/105
[2020-04-12 08:53] LABS: ALBUMIN 2.7 g/dL (3.4-5.0); ANION GAP 15 mmol/L (5-15); CALCIUM 8.8 mg/dL (8.5-10.1); CHLORIDE 101 mmol/L (98-107)
[2020-04-12] MEDS ORDERED: INSULIN NPH HUMAN 100 UNIT/ML, 3ML VIAL SQ-INSULIN SCH (09:00)
[2020-04-12 09:01] LABS: ALANINE AMINOTRANSFERASE 64 U/L (12-78); ALKALINE PHOSPHATASE 415 U/L (45-117); BILIRUBIN,TOTAL 0.4 mg/dL (0.2-1.0); CREATINE KINASE, TOTAL 109 U/L (39-308); CREATININE 3.26 mg/dL (0.7-1.3); TOTAL PROTEIN 7.3 g/dL (6.4-8.2)
[2020-04-12 09:09] LABS: MD SCAN
[2020-04-12 09:22] LABS: HCT (SEDRATE) 29.6 % (39.2-51.8)
[2020-04-12] MEDS ORDERED: SODIUM CHLORIDE 0.9%, 500ML IVBOLUS ONE (12:00)
[2020-04-12 12:18] VITALS: BP 190/119
[2020-04-12 13:40] LABS: ANION GAP 16 mmol/L (5-15); CALCIUM 8.6 mg/dL (8.5-10.1); CHLORIDE 95 mmol/L (98-107)
[2020-04-12 13:42] LABS: CREATININE 3.42 mg/dL (0.7-1.3)
[2020-04-12] MEDS: D5%-0.45NACL+KCL 20MEQ 1,000 ML IV SCH ×2 (14:30→20:42)
[2020-04-12] MEDS ORDERED: REGULAR INSULIN 100 UNITS in SODIUM CHLORIDE 0.9% 99 ML IV PRN (14:30)
[2020-04-12] MEDS: SODIUM CHLORIDE 0.9% 1,000 ML IV SCH ×3 (15:35→21:14)
[2020-04-12] MEDS ORDERED: PANTOPRAZOLE 40MG TABLET PO SCH (16:00)
[2020-04-12] MEDS ORDERED: LABETALOL 5MG/ML, 20ML IVPush PRN (17:19)
[2020-04-12] MEDS ORDERED: METOPROLOL 1 MG/ML, 5ML IVPush PRN (17:30)
[2020-04-12] MEDS: hydrALAzine 20 MG/ML, 1ML IV PRN (18:11)
[2020-04-12 18:20] LABS: ANION GAP 11 mmol/L (5-15); CALCIUM 8.3 mg/dL (8.5-10.1); CHLORIDE 100 mmol/L (98-107)
[2020-04-12 18:21] LABS: CREATININE 3.34 mg/dL (0.7-1.3)
[2020-04-12] MEDS ORDERED: CEFTRIAXONE PMX 1GM/50ML 50 ML IV SCH (18:30)
[2020-04-12] MEDS: METOPROLOL TARTRATE 100 MG TAB PO SCH (20:29)
[2020-04-12] MEDS: CEFTRIAXONE PMX 1GM/50ML 50 ML IV SCH (20:36)
[2020-04-12] MEDS: LABETALOL 5MG/ML, 20ML IVPush PRN (20:40)
[2020-04-12 22:51] LABS: ANION GAP 9 mmol/L (5-15); CALCIUM 8.2 mg/dL (8.5-10.1); CHLORIDE 106 mmol/L (98-107); CREATININE 2.92 mg/dL (0.7-1.3)
[2020-04-12] MEDS ORDERED: ALBUTEROL HFA 90 MCG/SPRAY INH PRN (23:00)
[2020-04-12] MEDS ORDERED: LACTATED RINGERS 1,000 ML IV SCH (23:00)
[2020-04-13] MEDS: SODIUM CHLORIDE 0.9% 1,000 ML IV SCH (00:01)
[2020-04-13 02:37] LABS: ANION GAP 11 mmol/L (5-15); CHLORIDE 107 mmol/L (98-107); CREATININE 2.97 mg/dL (0.7-1.3)
[2020-04-13] MEDS: D5%-0.45NACL+KCL 20MEQ 1,000 ML IV SCH (04:33)
[2020-04-13] MEDS: HEPARIN 5,000 UNITS/ML, 1ML SQ SCH ×3 (04:33→23:00)
[2020-04-13 04:34] VITALS: BP 158/99
[2020-04-13 04:38] LABS: ANION GAP 8 mmol/L (5-15); CALCIUM 8.1 mg/dL (8.5-10.1); CHLORIDE 108 mmol/L (98-107); CREATININE 2.89 mg/dL (0.7-1.3)
[2020-04-13] MEDS: LABETALOL 5MG/ML, 20ML IVPush PRN (06:27)
[2020-04-13] MEDS: hydrALAzine 20 MG/ML, 1ML IV PRN (07:35)
[2020-04-13] MEDS ORDERED: SCOPOLAMINE 1MG PATCH TD SCH (09:00)
[2020-04-13] MEDS: AMLODIPINE 10 MG TAB PO SCH (09:05)
[2020-04-13] MEDS: DOXAZOSIN 2MG TABLET PO SCH (09:06)
[2020-04-13] MEDS: METOPROLOL TARTRATE 100 MG TAB PO SCH ×2 (09:06→21:38)
[2020-04-13] MEDS: DOXYCYCLINE 100 MG in DEXTROSE 5% 250 ML IV SCH ×2 (09:09→22:30)
[2020-04-13 09:13] LABS: ANION GAP 7 mmol/L (5-15); CALCIUM 8.1 mg/dL (8.5-10.1); CHLORIDE 110 mmol/L (98-107); CREATININE 2.73 mg/dL (0.7-1.3)
[2020-04-13 10:28] LABS: RAPID INFLUENZA A Negative (Negative); RAPID INFLUENZA B Negative (Negative)
[2020-04-13 10:31] LABS: BASOPHILS % (AUTO) 1 % (0-1); EOSINOPHILS % (AUTO) 0 % (1-7); LYMPHOCYTES % (AUTO) 9 % (22-44); MEAN CORPUSCULAR HEMOGLOBIN 28.2 pg (27.5-34.5); MEAN CORPUSCULAR HGB CONC 33.3 g/dL (33.2-36.2); MEAN PLATELET VOLUME 8.4 fL (7.4-10.4); MONOCYTES % (AUTO) 7 % (2-9); NEUTROPHILS % (AUTO) 84 % (42-75); PLATELET COUNT 388 x10^3/uL (130-400); RED BLOOD COUNT 3.25 x10^6/uL (4.38-5.82); RED CELL DISTRIBUTION WIDTH 16.2 % (9.4-14.8)
[2020-04-13 10:32] LABS: MD NO
[2020-04-13] MEDS: INSULIN LISPRO 100 UNITS/ML, PEN SQ-INSULIN SCH ×3 (10:49→21:59)
[2020-04-13] MEDS: INSULIN NPH HUMAN 100 UNIT/ML, 3ML VIAL SQ-INSULIN SCH ×2 (10:50→21:59)
[2020-04-13 15:10] LABS: AMPHETAMINE SCREEN, URINE Negative (Negative); BARBITURATE SCREEN, URINE Negative (Negative); BENZODIAZEPINE SCREEN, URINE Negative (Negative); CANNABINOID SCREEN, URINE Positive (Negative); COCAINE SCREEN, URINE Negative (Negative); METHADONE SCREEN, URINE Negative (Negative); OPIATE SCREEN, URINE Negative (Negative)
[2020-04-13 21:20] VITALS: BP 154/96
[2020-04-13] MEDS: CEFTRIAXONE PMX 1GM/50ML 50 ML IV SCH (21:36)
[2020-04-14] MEDS: HEPARIN 5,000 UNITS/ML, 1ML SQ SCH ×3 (06:18→22:35)
[2020-04-14 06:20] LABS: BASOPHILS % (AUTO) 1 % (0-1); EOSINOPHILS % (AUTO) 0 % (1-7); LYMPHOCYTES % (AUTO) 14 % (22-44); MEAN CORPUSCULAR HEMOGLOBIN 28.3 pg (27.5-34.5); MEAN CORPUSCULAR HGB CONC 33.9 g/dL (33.2-36.2); MEAN PLATELET VOLUME 8.3 fL (7.4-10.4); MONOCYTES % (AUTO) 10 % (2-9); NEUTROPHILS % (AUTO) 76 % (42-75); PLATELET COUNT 309 x10^3/uL (130-400); RED BLOOD COUNT 2.95 x10^6/uL (4.38-5.82); RED CELL DISTRIBUTION WIDTH 16.1 % (9.4-14.8)
[2020-04-14 06:28] LABS: CHLORIDE 109 mmol/L (98-107)
[2020-04-14 06:36] LABS: MD NO
[2020-04-14 06:40] LABS: ANION GAP 8 mmol/L (5-15); CREATININE 2.57 mg/dL (0.7-1.3)
[2020-04-14] MEDS: INSULIN LISPRO 100 UNITS/ML, PEN SQ-INSULIN SCH ×4 (07:00→21:00)
[2020-04-14 07:25] VITALS: BP 157/94
[2020-04-14] MEDS: METOPROLOL TARTRATE 100 MG TAB PO SCH ×2 (09:05→21:14)
[2020-04-14] MEDS: AMLODIPINE 10 MG TAB PO SCH (09:05)
[2020-04-14] MEDS: DOXAZOSIN 2MG TABLET PO SCH (09:06)
[2020-04-14] MEDS: DOXYCYCLINE 100MG TABLET PO SCH ×2 (10:51→21:14)
[2020-04-14] MEDS: INSULIN NPH HUMAN 100 UNIT/ML, 3ML VIAL SQ-INSULIN SCH ×2 (10:53→22:17)
[2020-04-14 14:50] VITALS: BP 137/87
[2020-04-14 19:05] VITALS: BP 150/97
[2020-04-14] MEDS: ACETAMINOPHEN 325 MG TABLET PO PRN (19:50)
[2020-04-14 21:11] VITALS: BP 153/102
[2020-04-14] MEDS: CEFTRIAXONE PMX 1GM/50ML 50 ML IV SCH (21:14)
[2020-04-15] MEDS: HEPARIN 5,000 UNITS/ML, 1ML SQ SCH (07:00)
[2020-04-15] MEDS ORDERED: DEXTROSE 4 GM TAB.CHEW PO PRN (08:00)
[2020-04-15] MEDS ORDERED: GLUCAGON 1 MG IM PRN (08:00)
[2020-04-15] MEDS ORDERED: DEXTROSE 50%, 50ML SYRINGE IVPush PRN (08:00)
[2020-04-15 08:02] VITALS: BP_SYST 148; BP_DIAS 92; BP_DIAS 95
[2020-04-15] MEDS ORDERED: INSULIN NPH HUMAN 100 UNIT/ML, 3ML VIAL SQ-INSULIN SCH ×2 (09:00→21:00)
[2020-04-15] MEDS ORDERED: SODIUM CHLORIDE FLUSH 10ML SYR IVF SCH (09:00)
[2020-04-15] MEDS: DOXYCYCLINE 100MG TABLET PO SCH (09:13)
[2020-04-15] MEDS: METOPROLOL TARTRATE 100 MG TAB PO SCH (09:13)
[2020-04-15] MEDS: AMLODIPINE 10 MG TAB PO SCH (09:13)
[2020-04-15] MEDS: DOXAZOSIN 2MG TABLET PO SCH (09:14)
[2020-04-15] MEDS ORDERED: CEFD300C37 PO (10:51)
[2020-04-15] MEDS ORDERED: INSULIN LISPRO 100 UNITS/ML, PEN SQ-INSULIN SCH (11:00)
[2020-04-15 11:17] VITALS: BP 134/87
== END 2020-04-15 13:26 | disposition home or self-care (01) | DRG 420 ==
LOC: ED 17:31 → UNDOADMIN 18:29 → EDIP 18:29 → 4EST 21:49 → EDIP 21:49 → 4EST 23:09 → EDIP 23:09 → ICU 04-12 15:22 → 4NE 04-13 14:42
PROVIDERS: ADMIT Internal Medicine; ATTEND Family Medicine
DX: E10.10 Type 1 diabetes mellitus with ketoacidosis without coma (principal); D63.8 Anemia in other chronic diseases classified elsewhere; E10.22 Type 1 diabetes mellitus with diabetic chronic kidney disease; E10.649 Type 1 diabetes mellitus with hypoglycemia without coma; E86.0 Dehydration; F12.90 Cannabis use, unspecified, uncomplicated; I12.9 Hypertensive chronic kidney disease with stage 1 through stage 4 chronic kidney disease, or unspecified chronic kidney disease; I16.0 Hypertensive urgency; J18.9 Pneumonia, unspecified organism; J96.01 Acute respiratory failure with hypoxia; K31.84 Gastroparesis; N17.0 Acute kidney failure with tubular necrosis; N18.9 Chronic kidney disease, unspecified; Z20.822 Contact with and (suspected) exposure to COVID-19; I82.501 Chronic embolism and thrombosis of unspecified deep veins of right lower extremity; E10.43 Type 1 diabetes mellitus with diabetic autonomic (poly)neuropathy; Z87.891 Personal history of nicotine dependence; Z87.19 Personal history of other diseases of the digestive system; Z88.0 Allergy status to penicillin; Z88.8 Allergy status to other drugs, medicaments and biological substances
CPT/HCPCS: 36415; 71045; 74176; 80048; 80053; 80307; 82010; 82550; 82728; 82803; 82947; 82962; 83690; 83735; 84100; 84145; 85025; 85651; 86140; 87040; 87081; 87400; 96361; 96374; 96375; 99285; G0378; J0696; J1644; J1815; J2405; J7060; J0360; J1200; J2270; J2765; J3480; J7030; J7040; J7120; U0003

== ENCOUNTER 2020-07-27 18:00 | Emergency (ER) | payer MEDICAID ==
[~2020-07-27] VITALS: Ht 180.3 cm; Wt 87.0 kg
[~2020-07-27 18:00] MED LIST changes: +CEFD300C37 PO
[2020-07-27 18:07] VITALS: BP 118/75
[2020-07-27] MEDS ORDERED: DIPH,PERTUSS(ACELL),TET VAC/PF 0.5 ML IM-VACC ONE ×2 (18:30→18:37)
--- NOTE | 2020-07-27 19:16 | NUR ---
RECIEVED REPORT FROM CASSANDRA ASHTON.
--- NOTE | 2020-07-27 19:39 | NUR ---
Pt foot cleaned. Wrapped with bandage per pt request.
--- NOTE | 2020-07-27 19:49 | NUR ---
Patient given discharge instructions and they have confirmed that they understand the instructions. Patient transported to discharge desk in wheelchair. No questions at time of depart.
== END 2020-07-27 19:51 | disposition home or self-care (01) ==
LOC: ED 19:07
DX: S91.311A Laceration without foreign body, right foot, initial encounter (principal); X58.XXXA Exposure to other specified factors, initial encounter; Y93.89 Activity, other specified; Y92.009 Unspecified place in unspecified non-institutional (private) residence as the place of occurrence of the external cause; Y99.8 Other external cause status
CPT/HCPCS: 90471; 90715

== ENCOUNTER 2020-09-12 22:12 | Inpatient (IN) | payer MEDICAID ==
[~2020-09-12] VITALS: Ht 172.7 cm; Wt 67.6 kg
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
[2020-09-12 22:36] LABS: BASOPHILS % (AUTO) 1 % (0-1); EOSINOPHILS % (AUTO) 2 % (1-7); LYMPHOCYTES % (AUTO) 13 % (22-44); MEAN CORPUSCULAR HGB CONC 33.3 g/dL (33.2-36.2); MEAN PLATELET VOLUME 7.7 fL (7.4-10.4); MONOCYTES % (AUTO) 8 % (2-9); NEUTROPHILS % (AUTO) 76 % (42-75); PLATELET COUNT 312 x10^3/uL (130-400); RED BLOOD COUNT 4.58 x10^6/uL (4.38-5.82); RED CELL DISTRIBUTION WIDTH 17.4 % (9.4-14.8)
[2020-09-12 22:49] LABS: ALANINE AMINOTRANSFERASE 23 U/L (12-78); ALBUMIN 3.3 g/dL (3.4-5.0); ANION GAP 7 mmol/L (5-15); CALCIUM 8.1 mg/dL (8.5-10.1); CHLORIDE 113 mmol/L (98-107); CREATININE 4.76 mg/dL (0.7-1.3); SALICYLATE LEVEL 4.2 mg/dL (2.8-20.0)
[2020-09-12 22:51] LABS: ALKALINE PHOSPHATASE 131 U/L (45-117); BILIRUBIN,TOTAL 0.3 mg/dL (0.2-1.0); TOTAL PROTEIN 7.8 g/dL (6.4-8.2)
[2020-09-12] MEDS ORDERED: NALOXONE 0.4 MG/ML, 1ML ONE (22:56)
[2020-09-12] MEDS ORDERED: NALOXONE 0.4 MG/ML, 1ML IVPush ONE (23:00)
[2020-09-12 23:05] LABS: MICROSCOPIC AUTO
--- NOTE | 2020-09-12 23:05 | NUR ---
PT DID NOT RESPOND TO IV NARCAN, PTS GLUCOSE CAME BACK CRITICAL LOW AT 24
[2020-09-12] MEDS ORDERED: DEXTROSE 50%, 50ML SYRINGE ONE (23:06)
[2020-09-12 23:15] LABS: AMPHETAMINE SCREEN, URINE Positive (Negative); BARBITURATE SCREEN, URINE Negative (Negative); BENZODIAZEPINE SCREEN, URINE Negative (Negative); CANNABINOID SCREEN, URINE Positive (Negative); COCAINE SCREEN, URINE Negative (Negative); METHADONE SCREEN, URINE Negative (Negative); OPIATE SCREEN, URINE Negative (Negative)
[2020-09-12] MEDS ORDERED: DEXTROSE 50%, 50ML SYRINGE IVPush ONE (23:30)
--- NOTE | 2020-09-12 23:32 | NUR ---
PT TRAHSING ABOUT ON CART. PIV DISLODGED. 20G TO R EJ. DEXTROSE GIVEN C MILD RESULTS. MOVED TO T4. VSS. WILL CTM. OFFICER AT .
--- NOTE | 2020-09-12 23:50 | NUR ---
PT CONTINUES TO HAVE PERIODS OF THRASHING ABOUT ON CART, REMAINS IN 4 PT LEATHER RESTRAINTS. PT NOT RESPONDING APPROPRIATELY. AT BS. WILL CTM. RBS 90.
[2020-09-12] MEDS ORDERED: LORazepam 2 MG/ML, 1ML IV STA (23:52)
[2020-09-12] MEDS ORDERED: LORazepam 2 MG/ML, 1ML ONE ×2 (23:55→23:57)
[2020-09-13] MEDS ORDERED: SODIUM CHLORIDE FLUSH 10ML SYR IVF ONE
[2020-09-13] MEDS ORDERED: SODIUM CHLORIDE 0.9% 1,000ML IVBOLUS ONE
[2020-09-13] MEDS: PLEASE ENTER ALLERGIES MC SCH ×2 (00:30→04:17)
[2020-09-13] MEDS ORDERED: POTASSIUM CHLORIDE 10 MEQ in D5%-0.45% NACL 1,000 ML IV SCH (00:32)
[2020-09-13] MEDS ORDERED: DEXTROSE 50%, 50ML SYRINGE ONE (00:48)
[2020-09-13] MEDS ORDERED: DEXTROSE 50%, 50ML VIAL IVPush ONE (01:00)
[2020-09-13] MEDS ORDERED: DEXTROSE 50%, 50ML SYRINGE IVPush ONE (01:00)
--- NOTE | 2020-09-13 01:11 | NUR ---
Report from POLI Nugent. This RN to assume care. Patient sleeping at this time in [facility]. Respirations even and unlabored. Patient remains in four point hard restraints for patient safety.
[2020-09-13] MEDS ORDERED: LORazepam 2 MG/ML, 1ML IV STA (02:16)
[2020-09-13] MEDS ORDERED: ACETAMINOPHEN 325 MG TABLET PO PRN (02:30)
[2020-09-13] MEDS ORDERED: DEXTROSE 50%, 50ML SYRINGE IVPush PRN (02:30)
[2020-09-13] MEDS ORDERED: DEXTROSE 4 GM TAB.CHEW PO PRN (02:30)
[2020-09-13] MEDS ORDERED: PROMETHAZINE 25 MG/ML, 1ML IM PRN (02:30)
[2020-09-13] MEDS ORDERED: GLUCAGON 1 MG IM PRN (02:30)
[2020-09-13] MEDS ORDERED: D5%-0.45% NACL 1,000 ML IV SCH (02:30)
--- NOTE | 2020-09-13 03:30 | NUR ---
Report to POLI Drummond. Patient transferred to room 559 with security. Patient remains in four point restraints for safety.
[2020-09-13] MEDS: LORazepam 2 MG/ML, 1ML IVPush PRN ×3 (03:58→21:41)
[2020-09-13 04:49] LABS: ANION GAP 8 mmol/L (5-15); CALCIUM 7.7 mg/dL (8.5-10.1); CHLORIDE 112 mmol/L (98-107)
[2020-09-13 04:53] LABS: CREATINE KINASE, TOTAL 552 U/L (39-308); CREATININE 4.32 mg/dL (0.7-1.3)
[2020-09-13] MEDS: LACTATED RINGERS 1,000 ML IV SCH ×2 (08:42→15:08)
[2020-09-13] MEDS ORDERED: ZIPRASIDONE 20 MG INJ IM ONE (09:00)
[2020-09-13 10:29] LABS: CHOL/HDL RATIO 4.5; LDL/HDL RATIO 2.8 (0.5-3.0)
[2020-09-13] MEDS: LISINOPRIL 10 MG TABLET PO SCH (13:12)
[2020-09-13] MEDS: LABETALOL 5MG/ML, 20ML IVPush PRN (16:26)
[2020-09-13] MEDS: SODIUM CHLORIDE FLUSH 10ML SYR IVF SCH ×2 (17:03→21:37)
[2020-09-13 20:10] VITALS: BP 139/78
[2020-09-13] MEDS: QUETIAPINE 25MG TABLET PO SCH (21:36)
[2020-09-14 01:54] VITALS: BP 123/75
[2020-09-14 05:40] LABS: BASOPHILS % (AUTO) 1 % (0-1); EOSINOPHILS % (AUTO) 1 % (1-7); LYMPHOCYTES % (AUTO) 14 % (22-44); MEAN CORPUSCULAR HEMOGLOBIN 27.3 pg (27.5-34.5); MEAN CORPUSCULAR HGB CONC 32.9 g/dL (33.2-36.2); MEAN PLATELET VOLUME 7.9 fL (7.4-10.4); MONOCYTES % (AUTO) 7 % (2-9); NEUTROPHILS % (AUTO) 78 % (42-75); PLATELET COUNT 304 x10^3/uL (130-400); RED BLOOD COUNT 4.62 x10^6/uL (4.38-5.82); RED CELL DISTRIBUTION WIDTH 17.8 % (9.4-14.8)
[2020-09-14 05:51] LABS: ANION GAP 13 mmol/L (5-15); CALCIUM 8.2 mg/dL (8.5-10.1); CHLORIDE 110 mmol/L (98-107); CREATININE 3.91 mg/dL (0.7-1.3)
[2020-09-14] MEDS ORDERED: LACTATED RINGERS 1,000 ML IV SCH (07:00)
[2020-09-14] MEDS: SODIUM CHLORIDE FLUSH 10ML SYR IVF SCH ×2 (07:51→20:24)
[2020-09-14] MEDS: QUETIAPINE 25MG TABLET PO SCH ×2 (07:52→20:23)
[2020-09-14] MEDS: LISINOPRIL 10 MG TABLET PO SCH (07:52)
[2020-09-14 08:07] VITALS: BP 135/85
[2020-09-14] MEDS ORDERED: INSULIN LISPRO 100 UNITS/ML, PEN SQ-INSULIN ONE (22:00)
[2020-09-14] MEDS ORDERED: INSULIN LISPRO 100 UNIT/ML, 3ML VIAL SQ-INSULIN ONE (22:00)
[2020-09-14] MEDS ORDERED: SODIUM CHLORIDE 0.9% 1,000ML IVBOLUS ONE (22:00)
[2020-09-14 22:05] LABS: ANION GAP 28 mmol/L (5-15); CALCIUM 8.5 mg/dL (8.5-10.1); CHLORIDE 93 mmol/L (98-107); CREATININE 4.19 mg/dL (0.7-1.3)
[2020-09-14] MEDS ORDERED: SODIUM CHLORIDE 0.9% 1,000 ML IV SCH (22:30)
[2020-09-15] MEDS ORDERED: SODIUM BICARB 8.4%, 50ML SYRINGE IVPush ONE
[2020-09-15] MEDS ORDERED: REGULAR INSULIN 100 UNITS in SODIUM CHLORIDE 0.9% 99 ML IV PRN
[2020-09-15] MEDS ORDERED: SODIUM CHLORIDE 0.9% 1,000ML IVBOLUS ONE
[2020-09-15] MEDS ORDERED: CALCIUM GLUCONATE 4.6 MEQ in SODIUM CHLORIDE 0.9% 50 ML IV ONE
[2020-09-15 00:27] LABS: ACETONE, SERUM Large (80mg/dL) (Negative)
[2020-09-15] MEDS: REGULAR INSULIN 100 UNITS in SODIUM CHLORIDE 0.9% 99 ML IV PRN ×6 (00:41→13:54)
[2020-09-15] MEDS: LABETALOL 5MG/ML, 20ML IVPush PRN ×3 (03:09→08:53)
[2020-09-15 03:19] LABS: BASOPHILS % (AUTO) 1 % (0-1); EOSINOPHILS % (AUTO) 0 % (1-7); LYMPHOCYTES % (AUTO) 5 % (22-44); MEAN CORPUSCULAR HEMOGLOBIN 26.7 pg (27.5-34.5); MEAN CORPUSCULAR HGB CONC 32.8 g/dL (33.2-36.2); MEAN PLATELET VOLUME 7.8 fL (7.4-10.4); MONOCYTES % (AUTO) 5 % (2-9); NEUTROPHILS % (AUTO) 89 % (42-75); PLATELET COUNT 308 x10^3/uL (130-400); RED BLOOD COUNT 4.44 x10^6/uL (4.38-5.82); RED CELL DISTRIBUTION WIDTH 16.6 % (9.4-14.8)
[2020-09-15 03:32] LABS: ALANINE AMINOTRANSFERASE 19 U/L (12-78); ALBUMIN 2.4 g/dL (3.4-5.0); ANION GAP 15 mmol/L (5-15); CALCIUM 7.9 mg/dL (8.5-10.1); CHLORIDE 102 mmol/L (98-107); CREATININE 4.32 mg/dL (0.7-1.3)
[2020-09-15 03:34] LABS: ALKALINE PHOSPHATASE 135 U/L (45-117); BILIRUBIN,TOTAL 0.5 mg/dL (0.2-1.0); TOTAL PROTEIN 6.4 g/dL (6.4-8.2)
[2020-09-15] MEDS: SODIUM CHLORIDE 0.9% 1,000 ML IV SCH ×3 (06:23→08:03)
[2020-09-15] MEDS ORDERED: INSULIN LISPRO 100 UNITS/ML, PEN SQ-INSULIN SCH (07:00)
[2020-09-15 07:08] LABS: ANION GAP 11 mmol/L (5-15); CHLORIDE 108 mmol/L (98-107)
[2020-09-15] MEDS: D5%-0.45NACL+KCL 20MEQ 1,000 ML IV SCH ×2 (07:47→08:00)
[2020-09-15] MEDS: LISINOPRIL 10 MG TABLET PO SCH (07:57)
[2020-09-15] MEDS: QUETIAPINE 25MG TABLET PO SCH (08:19)
[2020-09-15] MEDS ORDERED: QUETIAPINE 25MG TABLET PO PRN (08:30)
[2020-09-15] MEDS: SODIUM CHLORIDE FLUSH 10ML SYR IVF SCH ×3 (08:33→21:00)
[2020-09-15 10:34] LABS: CHLORIDE 109 mmol/L (98-107)
[2020-09-15 10:35] LABS: ANION GAP 11 mmol/L (5-15); CALCIUM 8.6 mg/dL (8.5-10.1); CREATININE 3.94 mg/dL (0.7-1.3); IRON LEVEL 87 mcg/dL (65-175)
[2020-09-15 10:39] LABS: % IRON SATURATION 39 % (20-55); TOTAL IRON BINDING CAPACITY 221 mcg/dL (250-450)
[2020-09-15] MEDS ORDERED: METOPROLOL TARTRATE 50 MG TAB ONE (11:21)
[2020-09-15] MEDS ORDERED: AMLODIPINE 5 MG TABLET PO ONE (13:00)
[2020-09-15] MEDS: NITROGLYCERIN OINT 2%, 1GM TP SCH ×2 (14:40→20:30)
[2020-09-15 15:34] LABS: ANION GAP 8 mmol/L (5-15); CALCIUM 8.1 mg/dL (8.5-10.1); CHLORIDE 112 mmol/L (98-107); CREATININE 3.66 mg/dL (0.7-1.3)
[2020-09-15] MEDS ORDERED: DEXTROSE 50%, 50ML SYRINGE IVPush PRN (16:00)
[2020-09-15] MEDS ORDERED: INSULIN GLARGINE 100 UNITS/ML, PEN SQ-INSULIN SCH (16:00)
[2020-09-15] MEDS ORDERED: DEXTROSE 4 GM TAB.CHEW PO PRN (16:00)
[2020-09-15] MEDS: INSULIN LISPRO 100 UNITS/ML, PEN SQ-INSULIN SCH ×2 (16:00→22:49)
[2020-09-15] MEDS ORDERED: GLUCAGON 1 MG IM PRN (16:00)
[2020-09-15] MEDS: METOPROLOL TARTRATE 50 MG TAB PO SCH ×2 (16:58→22:00)
[2020-09-15] MEDS ORDERED: METOPROLOL TARTRATE 50 MG TAB PO SCH (18:00)
[2020-09-15 19:10] LABS: ANION GAP 12 mmol/L (5-15); CALCIUM 7.9 mg/dL (8.5-10.1); CHLORIDE 108 mmol/L (98-107); CREATININE 3.66 mg/dL (0.7-1.3)
[2020-09-15] MEDS ORDERED: LISINOPRIL 10 MG TABLET PO SCH (21:00)
[2020-09-15] MEDS: AMLODIPINE 5 MG TABLET PO SCH (21:09)
[2020-09-15 23:16] LABS: ANION GAP 9 mmol/L (5-15); CALCIUM 7.8 mg/dL (8.5-10.1); CHLORIDE 109 mmol/L (98-107); CREATININE 3.61 mg/dL (0.7-1.3)
[2020-09-16] MEDS: NITROGLYCERIN OINT 2%, 1GM TP SCH ×2 (02:30→08:30)
[2020-09-16] MEDS: METOPROLOL TARTRATE 50 MG TAB PO SCH (05:58)
[2020-09-16 06:17] LABS: BASOPHILS % (AUTO) 0 % (0-1); EOSINOPHILS % (AUTO) 1 % (1-7); LYMPHOCYTES % (AUTO) 6 % (22-44); MEAN CORPUSCULAR HEMOGLOBIN 27.1 pg (27.5-34.5); MEAN CORPUSCULAR HGB CONC 33.2 g/dL (33.2-36.2); MEAN PLATELET VOLUME 8.1 fL (7.4-10.4); MONOCYTES % (AUTO) 6 % (2-9); NEUTROPHILS % (AUTO) 87 % (42-75); PLATELET COUNT 293 x10^3/uL (130-400); RED BLOOD COUNT 4.53 x10^6/uL (4.38-5.82); RED CELL DISTRIBUTION WIDTH 17.6 % (9.4-14.8)
[2020-09-16 06:34] LABS: ANION GAP 11 mmol/L (5-15); CALCIUM 8.1 mg/dL (8.5-10.1); CHLORIDE 107 mmol/L (98-107); CREATININE 3.67 mg/dL (0.7-1.3)
[2020-09-16] MEDS ORDERED: SODIUM ZIRCONIUM CYCLOSILICATE 10 GM PO ONE (08:00)
[2020-09-16] MEDS: INSULIN LISPRO 100 UNITS/ML, PEN SQ-INSULIN SCH ×2 (08:06→11:20)
[2020-09-16] MEDS: SODIUM CHLORIDE FLUSH 10ML SYR IVF SCH ×2 (08:15→09:00)
[2020-09-16] MEDS: AMLODIPINE 5 MG TABLET PO SCH (08:16)
[2020-09-16] MEDS ORDERED: INSULIN GLARGINE 100 UNITS/ML, PEN SQ-INSULIN SCH (09:00)
[2020-09-16] MEDS ORDERED: LISINOPRIL 10 MG TABLET PO SCH (09:00)
[2020-09-16] MEDS ORDERED: INSU100V8 SQ (14:11)
[2020-09-16] MEDS ORDERED: METO25TA35 PO (14:11)
[2020-09-16] MEDS ORDERED: LISI-167 PO ×2 (14:11)
[2020-09-16] MEDS ORDERED: AMLO10TA4 PO (14:11)
[2020-09-16] MEDS ORDERED: LISI5TAB7 PO (14:19)
== END 2020-09-16 12:55 | disposition left against medical advice (07) | DRG 420 ==
LOC: EDBD 22:12 → ED 22:42 → MERGE 09-13 01:54 → EDIP 09-13 01:54 → CCU 09-13 03:51 → 3N 09-13 16:57 → CCU 09-14 23:15
PROVIDERS: ADMIT Family Medicine; ATTEND Hospitalist
PROC: 0T9B70Z Drainage of Bladder with Drainage Device, Via Natural or Artificial Opening (ICD-10-PCS; principal; 2020-09-12)
DX: E10.11 Type 1 diabetes mellitus with ketoacidosis with coma (principal); G92 Toxic encephalopathy; N17.9 Acute kidney failure, unspecified; N18.4 Chronic kidney disease, stage 4 (severe); E10.22 Type 1 diabetes mellitus with diabetic chronic kidney disease; E10.649 Type 1 diabetes mellitus with hypoglycemia without coma; Z20.822 Contact with and (suspected) exposure to COVID-19; D63.1 Anemia in chronic kidney disease; Z53.29 Procedure and treatment not carried out because of patient's decision for other reasons; F15.10 Other stimulant abuse, uncomplicated; I12.9 Hypertensive chronic kidney disease with stage 1 through stage 4 chronic kidney disease, or unspecified chronic kidney disease; Z78.1 Physical restraint status; Z79.4 Long term (current) use of insulin; Z79.899 Other long term (current) drug therapy
CPT/HCPCS: 36415; 71045; 76770; 80048; 80053; 80061; 80299; 80307; 80320; 80329; 81001; 82010; 82306; 82550; 82570; 82728; 82800; 82947; 82962; 83036; 83540; 83550; 83735; 83970; 84145; 84156; 84443; 85025; 87081; 93005; 96374; 96375; 99291; G0378; J0610; J1815; J2310; J3480; J3486; G0480; J2060; J7030; J7120

== ENCOUNTER 2020-09-28 14:20 | Inpatient (IN) | payer MEDICAID ==
[~2020-09-28] VITALS: Ht 182.9 cm; Wt 79.5 kg
[~2020-09-28 14:20] MED LIST changes: +INSU100V8 SQ; +LISI-167 PO; +LISI5TAB7 PO
--- NOTE | 2020-09-28 14:20 | NUR ---
45 YR OLD MALE ARRIVED VIA EMS. PER REPORT PT WITH COUGH AND INCREASED SOB FOR A COUPLE OF DAYS. PT FOUND TODAY BY ROOMMATE, ON 6L NC. ROOMMATE INCREASED OXYGEN TO 8L NC. EMS FOUND PT TO HAVE SATS 60-70%. PT GIVEN ONE ALBUTEROL TREATMENT AND 2 DOUNEBS. BS 211 ET 25. PT ARRIVED WITH 15LNRB AND 6LNC. PT TALKING AND YELLING AT TIMES. "I WANT A BLANKET" PT WITH INCREASED ANXIETY "I'M SCARED" RT AT BEDSIDE. PT PLACED ON VAPERTHERM. DR GILL AT BEDSIDE. PT PLACED ON MONITORING EQUIPMENT. ST PER MONITOR.
[2020-09-28] MEDS ORDERED: ALBUTEROL SULFATE 2.5MG/0.5ML ONE (14:27)
[2020-09-28] MEDS ORDERED: methylPREDNISolone SOD SUCC 125 MG/2 ML IV ONE (14:30)
[2020-09-28] MEDS ORDERED: MAGNESIUM SULFATE PMX 2GM/50ML 50 ML IVPB ONE (14:30)
[2020-09-28] MEDS ORDERED: ALBUTEROL/IPRATROPIUM 2.5MG/0.5MG, 3 ML NPPB SCH (14:30)
--- NOTE | 2020-09-28 14:35 | NUR ---
PT PLACED ON BIPAP FOR NEB TREATMENT. SR PER MONITOR. SATS 98%
[2020-09-28] MEDS ORDERED: LORazepam 2 MG/ML, 1ML ONE (14:39)
[2020-09-28] MEDS ORDERED: MAGNESIUM SULFATE PMX 2GM/50ML 50 ML ONE (14:40)
[2020-09-28] MEDS ORDERED: methylPREDNISolone SOD SUCC 125 MG/2 ML ONE (14:40)
[2020-09-28 14:51] LABS: MEAN CORPUSCULAR HEMOGLOBIN 27.8 pg (27.5-34.5); MEAN CORPUSCULAR HGB CONC 33.8 g/dL (33.2-36.2); MEAN PLATELET VOLUME 8.1 fL (7.4-10.4); PLATELET COUNT 500 x10^3/uL (130-400); RED BLOOD COUNT 2.33 x10^6/uL (4.38-5.82); RED CELL DISTRIBUTION WIDTH 17.7 % (9.4-14.8)
--- NOTE | 2020-09-28 14:54 | NUR ---
PT MEDICATED ORDERED. MAG INFUSING ORDERED. PT DOZING INTERMITTENTLY, AROUSES TO NAME. SR-ST PER MONITOR. CONT WITH BIPAP AT 12/8 75%, SATS 97%. AWAITING TEST RESULTS.
[2020-09-28 15:00] LABS: ALANINE AMINOTRANSFERASE 34 U/L (12-78); ALBUMIN 2.2 g/dL (3.4-5.0); ANION GAP 12 mmol/L (5-15); CALCIUM 6.3 mg/dL (8.5-10.1); CHLORIDE 105 mmol/L (98-107)
[2020-09-28] MEDS ORDERED: LORazepam 2 MG/ML, 1ML IVPush ONE (15:00)
[2020-09-28 15:04] LABS: ALKALINE PHOSPHATASE 115 U/L (45-117); BILIRUBIN,TOTAL 0.2 mg/dL (0.2-1.0); TOTAL PROTEIN 6.5 g/dL (6.4-8.2); TROPONIN I 0.039 ng/mL (0.000-0.045)
[2020-09-28] MEDS ORDERED: FUROSEMIDE 40 MG/4 ML ONE (15:13)
[2020-09-28 15:22] LABS: BAND#(MANUAL) 0.22 x10^3/uL; BANDS%(MANUAL) 1 % (0-7); EOS#(MANUAL) 0.22 x10^3/uL (0.0-0.4); EOS% (MANUAL) 1 % (1-7); LYMPH#(MANUAL) 1.34 x10^3/uL (1-3.4); LYMPHS% (MANUAL) 6 % (22-44); MONOS% (MANUAL) 4 % (2-9); SEG#(MANUAL) 19.71 x10^3/uL (1.8-6.8); SEGS% (MANUAL) 88 % (42-75)
[2020-09-28 15:26] LABS: ACETONE, SERUM Negative (Negative)
--- NOTE | 2020-09-28 15:28 | NUR ---
DISCUSSED SEPSIS PROTOCOL WITH DR GILL, PT WITH ELEVATED BNP, BP CONT TO BE WNL. ST PER MONITOR. NO FLUIDS ORDERED AT THIS TIME.
[2020-09-28 15:30] LABS: <PLATELET ESTIMATE> INCREASED; <PLT MORPHOLOGY> NORMAL PLT MORPH
[2020-09-28] MEDS ORDERED: FUROSEMIDE 20 MG/2 ML IVPush ONE (15:30)
[2020-09-28] MEDS ORDERED: CEFTRIAXONE 1,000 MG in DEXTROSE 5% 50 ML IVPB ONE (15:30)
[2020-09-28] MEDS ORDERED: DOXYCYCLINE 100 MG in DEXTROSE 5% 250 ML IV SCH (15:30)
[2020-09-28 15:31] LABS: ANISOCYTOSIS 1+; HYPOCHROMIA 1+; MICROCYTOSIS 1+
--- NOTE | 2020-09-28 15:39 | NUR ---
IV ABX INFUSING. BLOOD CULTURES X2 IN LAB, PROCESSING. CONT ST PER MONITOR, AUTO BP AND PULSE OX IN PLACE. CONT WITH BIPAP IN PLACE. GUIAC PERFOMED BY DR GILL (NEG). PT CONT DOZING, AROUSES TO NAME.
[2020-09-28 15:55] LABS: C-REACTIVE PROTEIN, QUANT 2.5 mg/dL (0.02-0.49); D-DIMER (DIC) 4.15 ug/mlFEU (0.00-0.52); PROTIME 9.6 Seconds (9.6-11.5)
--- NOTE | 2020-09-28 16:02 | NUR ---
DR NORTH AT BEDSIDE TO PIERRE PT. LINING FELLER AT BEDSIDE FOR BLOOD DRAW.
--- NOTE | 2020-09-28 16:19 | NUR ---
PT PLACED BACK ON VAPOTHERM 25 AT 50%. PT BOOSTED UP ON GURNEY. HOB UP. COVID SWAB COLLECTED AND WALKED TO LAB. CONT ST PER MONITOR. IV'S INFUSING WITHOUT REDNESS/SWELLING. PT CONT MOSTLY SLEEPING, AROUSES TO NAME.
--- NOTE | 2020-09-28 16:25 | NUR ---
DISCUSSED PT OXYGENATION WITH DIMPLE MCMULLEN FOR 87-88%.
--- NOTE | 2020-09-28 16:29 | NUR ---
HEATER INSTALLER AT BEDSIDE TO DRAW H&H. CALL PLACED TO DR NORTH TO CLARIFY. REPEAT H&H TO BE DRAWN AFTER BLOOD TRANSFUSION. HEATER INSTALLER NOTIFIED.
[2020-09-28] MEDS ORDERED: ONDANSETRON 2MG/ML, 2ML IVPush PRN (16:30)
[2020-09-28] MEDS ORDERED: LABETALOL 5MG/ML, 20ML IVPush PRN (16:30)
[2020-09-28] MEDS ORDERED: DARBEPOETIN 60 MCG/ML SQ SCH (16:30)
[2020-09-28] MEDS ORDERED: CALCIUM GLUCONATE 9.2 MEQ in SODIUM CHLORIDE 0.9% 100 ML IV ONE (16:30)
[2020-09-28] MEDS ORDERED: DEXTROSE 50%, 50ML SYRINGE IVPush PRN (16:30)
[2020-09-28] MEDS ORDERED: MELATONIN 5 MG TABLET PO PRN (16:30)
[2020-09-28] MEDS: methylPREDNISolone SOD SUCC 40 MG/ML IVPush SCH ×2 (16:30→22:26)
[2020-09-28] MEDS ORDERED: DEXTROSE 4 GM TAB.CHEW PO PRN (16:30)
[2020-09-28] MEDS ORDERED: hydrALAzine 20 MG/ML, 1ML IVPush PRN (16:30)
[2020-09-28] MEDS ORDERED: GLUCAGON 1 MG IM PRN (16:30)
--- NOTE | 2020-09-28 16:46 | NUR ---
PT SIGNED CONSENT FOR BLOOD PRODUCTS. 1ST UNIT OF [facility] REQUESTED FROM BLOOD BANK. CALCIUM REQUESTED FROM PHARMACY.
[2020-09-28] MEDS: FUROSEMIDE 40 MG/4 ML IV SCH (17:00)
[2020-09-28] MEDS ORDERED: ALBUTEROL/IPRATROPIUM 2.5MG/0.5MG, 3 ML HHN SCH (17:00)
[2020-09-28 17:06] VITALS: BP 129/88
--- NOTE | 2020-09-28 17:25 | NUR ---
REPORT TO BRUNO ASHTON, POC DISCUSSED.
[2020-09-28 17:28] VITALS: BP 129/88
--- NOTE | 2020-09-28 17:29 | NUR ---
[facility] INFUSING WITHOUT S/S OF ADVERSE REACTION.
[2020-09-28 18:00] VITALS: BP 158/97
[2020-09-28] MEDS: INSULIN LISPRO 100 UNITS/ML, PEN SQ-INSULIN SCH ×2 (18:31→21:41)
[2020-09-28 19:52] VITALS: BP 152/99
[2020-09-28] MEDS ORDERED: SODIUM BICARBONATE 650 MG TABLET PO SCH (21:00)
[2020-09-28 21:17] VITALS: BP 141/92
[2020-09-28] MEDS: CALCITRIOL 0.25 MCG CAPSULE PO SCH (21:21)
[2020-09-28] MEDS: SODIUM CHLORIDE FLUSH 10ML SYR IVF SCH (21:22)
[2020-09-28 22:51] LABS: MICROSCOPIC INDICATED
[2020-09-28 22:52] LABS: CHLORIDE,URINE RANDOM 31 mmol/L; POTASSIUM,URINE RANDOM 26 mmol/L; SODIUM,URINE RANDOM 39 mmol/L
[2020-09-28 23:11] LABS: AMPHETAMINE SCREEN, URINE Negative (Negative); BARBITURATE SCREEN, URINE Negative (Negative); BENZODIAZEPINE SCREEN, URINE Negative (Negative); CANNABINOID SCREEN, URINE Positive (Negative); COCAINE SCREEN, URINE Negative (Negative); METHADONE SCREEN, URINE Negative (Negative); OPIATE SCREEN, URINE Negative (Negative)
[2020-09-28 23:19] LABS: TOTAL PROTEIN,URINE RANDOM 394 mg/dL (0-12)
[2020-09-29] MEDS: methylPREDNISolone SOD SUCC 40 MG/ML IVPush SCH ×4 (04:06→21:42)
[2020-09-29] MEDS: ACETAMINOPHEN 325 MG TABLET PO PRN ×2 (04:09→10:54)
[2020-09-29 06:47] LABS: MEAN CORPUSCULAR HEMOGLOBIN 27.7 pg (27.5-34.5); MEAN CORPUSCULAR HGB CONC 33.2 g/dL (33.2-36.2); MEAN PLATELET VOLUME 8.4 fL (7.4-10.4); PLATELET COUNT 450 x10^3/uL (130-400); RED BLOOD COUNT 2.58 x10^6/uL (4.38-5.82); RED CELL DISTRIBUTION WIDTH 17.1 % (9.4-14.8)
[2020-09-29 06:54] LABS: ANION GAP 15 mmol/L (5-15); CALCIUM 6.5 mg/dL (8.5-10.1); CHLORIDE 103 mmol/L (98-107); CREATININE 5.65 mg/dL (0.7-1.3)
[2020-09-29] MEDS ORDERED: ALBUTEROL/IPRATROPIUM 2.5MG/0.5MG, 3 ML HHN SCH (07:00)
[2020-09-29] MEDS ORDERED: INSULIN GLARGINE 100 UNITS/ML, PEN SQ-INSULIN SCH ×3 (07:00→21:00)
[2020-09-29 07:16] LABS: LYMPH#(MANUAL) 0.73 x10^3/uL (1-3.4); LYMPHS% (MANUAL) 3 % (22-44); MONOS#(MANUAL) 0.24 x10^3/uL (0.3-2.7); MONOS% (MANUAL) 1 % (2-9); SEG#(MANUAL) 23.42 x10^3/uL (1.8-6.8); SEGS% (MANUAL) 96 % (42-75)
[2020-09-29 07:17] LABS: <PLATELET ESTIMATE> INCREASED; <PLT MORPHOLOGY> NORMAL PLT MORPH; ANISOCYTOSIS 1+
[2020-09-29] MEDS ORDERED: INSULIN REGULAR 100 UNITS/ML, 3ML VIAL IVPush ONE (07:30)
[2020-09-29] MEDS ORDERED: INSULIN LISPRO 100 UNITS/ML, PEN SQ-INSULIN SCH (07:30)
[2020-09-29] MEDS ORDERED: SODIUM ZIRCONIUM CYCLOSILICATE 10 GM PO ONE (07:30)
[2020-09-29] MEDS: FUROSEMIDE 40 MG/4 ML IV SCH (07:44)
[2020-09-29 07:55] LABS: ACETONE, SERUM Small (20mg/dL) (Negative)
[2020-09-29] MEDS: PANTOPRAZOLE 40 MG IV IVPush SCH (08:20)
[2020-09-29] MEDS: IRON SUCROSE COMPLEX 100MG/5ML IVPush SCH (08:20)
[2020-09-29] MEDS: CALCITRIOL 0.25 MCG CAPSULE PO SCH ×2 (08:21→11:30)
[2020-09-29] MEDS: INSULIN LISPRO 100 UNITS/ML, PEN SQ-INSULIN SCH ×6 (08:26→21:43)
[2020-09-29] MEDS: SODIUM CHLORIDE FLUSH 10ML SYR IVF SCH ×2 (09:00→21:40)
[2020-09-29] MEDS ORDERED: SODIUM BICARBONATE 650 MG TABLET PO SCH (09:00)
[2020-09-29] MEDS ORDERED: AMLODIPINE 5 MG TABLET PO SCH (09:00)
[2020-09-29] MEDS: METOPROLOL TARTRATE 50 MG TAB PO SCH ×2 (09:29→18:01)
[2020-09-29] MEDS ORDERED: ALBUTEROL/IPRATROPIUM 2.5MG/0.5MG, 3 ML NPPB PRN (11:00)
[2020-09-29] MEDS ORDERED: LORazepam 2 MG/ML, 1ML ONE (11:27)
[2020-09-29 11:28] LABS: ABSOLUTE RETICS # 0.058 x10^6/uL (0.5-1.5); RED BLOOD COUNT 2.4 x10^6/uL (4.38-5.82); RETICULOCYTE COUNT % 2.42 % (0.5-1.5)
[2020-09-29] MEDS ORDERED: LORazepam 2 MG/ML, 1ML IVPush ONE (11:30)
[2020-09-29] MEDS ORDERED: CALCIUM GLUCONATE 4.6 MEQ in SODIUM CHLORIDE 0.9% 100 ML IV ONE (11:30)
[2020-09-29 11:31] LABS: CALCIUM 6.9 mg/dL (8.5-10.1)
[2020-09-29] MEDS: LISINOPRIL 20 MG TABLET PO SCH ×2 (12:17→21:41)
[2020-09-29] MEDS: FUROSEMIDE 80 MG TABLET PO SCH (12:17)
[2020-09-29] MEDS: OXYcodone IR 5MG TABLET PO PRN ×2 (12:21→21:41)
[2020-09-29 13:32] VITALS: BP 159/83
[2020-09-29 13:33] VITALS: BP 156/84
[2020-09-29 13:47] VITALS: BP_SYST 84
[2020-09-29 15:15] VITALS: BP 149/83
[2020-09-29] MEDS: DOXYCYCLINE 100 MG in DEXTROSE 5% 250 ML IV SCH (16:13)
[2020-09-29] MEDS: CEFTRIAXONE 2 GM in DEXTROSE 5% 50 ML IVPB SCH (16:13)
[2020-09-29 21:14] VITALS: BP 162/90
[2020-09-30 02:52] VITALS: BP 148/82
[2020-09-30] MEDS: DOXYCYCLINE 100 MG in DEXTROSE 5% 250 ML IV SCH ×2 (04:50→16:58)
[2020-09-30] MEDS: methylPREDNISolone SOD SUCC 40 MG/ML IVPush SCH ×3 (04:50→20:30)
[2020-09-30] MEDS: METOPROLOL TARTRATE 50 MG TAB PO SCH ×2 (05:44→16:58)
[2020-09-30 05:46] LABS: BASOPHILS % (AUTO) 0 % (0-1); EOSINOPHILS % (AUTO) 0 % (1-7); LYMPHOCYTES % (AUTO) 2 % (22-44); MEAN CORPUSCULAR HEMOGLOBIN 28.4 pg (27.5-34.5); MEAN CORPUSCULAR HGB CONC 33.5 g/dL (33.2-36.2); MEAN PLATELET VOLUME 8.4 fL (7.4-10.4); MONOCYTES % (AUTO) 3 % (2-9); NEUTROPHILS % (AUTO) 95 % (42-75); PLATELET COUNT 449 x10^3/uL (130-400); RED BLOOD COUNT 2.79 x10^6/uL (4.38-5.82)
[2020-09-30 06:00] LABS: ALANINE AMINOTRANSFERASE 20 U/L (12-78); ALBUMIN 1.8 g/dL (3.4-5.0); ANION GAP 12 mmol/L (5-15); CALCIUM 7.1 mg/dL (8.5-10.1); CHLORIDE 100 mmol/L (98-107); CREATININE 4.38 mg/dL (0.7-1.3)
[2020-09-30 06:02] LABS: ALKALINE PHOSPHATASE 95 U/L (45-117); BILIRUBIN,TOTAL 0.2 mg/dL (0.2-1.0); TOTAL PROTEIN 5.8 g/dL (6.4-8.2)
[2020-09-30 07:15] VITALS: BP 146/81
[2020-09-30] MEDS: CALCITRIOL 0.25 MCG CAPSULE PO SCH (07:46)
[2020-09-30] MEDS: FUROSEMIDE 80 MG TABLET PO SCH (07:46)
[2020-09-30] MEDS: PANTOPRAZOLE 40 MG IV IVPush SCH (07:46)
[2020-09-30] MEDS: IRON SUCROSE COMPLEX 100MG/5ML IVPush SCH (07:46)
[2020-09-30] MEDS: LISINOPRIL 20 MG TABLET PO SCH ×2 (07:47→22:38)
[2020-09-30] MEDS: OXYcodone IR 5MG TABLET PO PRN ×3 (07:47→22:38)
[2020-09-30] MEDS: SODIUM CHLORIDE FLUSH 10ML SYR IVF SCH ×2 (07:47→22:40)
[2020-09-30] MEDS: INSULIN GLARGINE 100 UNITS/ML, PEN SQ-INSULIN SCH ×2 (07:48→22:39)
[2020-09-30] MEDS: INSULIN LISPRO 100 UNITS/ML, PEN SQ-INSULIN SCH ×7 (07:49→22:39)
[2020-09-30] MEDS: ACETAMINOPHEN 325 MG TABLET PO PRN (10:50)
[2020-09-30] MEDS ORDERED: ERGOCALCIFEROL 50,000 UNIT CAPSULE ONE (11:26)
[2020-09-30] MEDS: CALCIUM ACETATE 667 MG CAPSULE PO SCH ×2 (11:56→16:58)
[2020-09-30] MEDS ORDERED: ERGOCALCIFEROL 50,000 UNIT CAPSULE PO SCH (12:00)
[2020-09-30 12:01] VITALS: BP 159/85
[2020-09-30] MEDS: MULTIVITS,STRESS FORMULA 1 TABLET PO SCH (15:08)
[2020-09-30] MEDS: CEFTRIAXONE 2 GM in DEXTROSE 5% 50 ML IVPB SCH (15:08)
[2020-09-30 18:30] VITALS: BP 181/100
[2020-09-30 22:25] VITALS: BP 184/97
[2020-09-30] MEDS: hydrALAzine 20 MG/ML, 1ML IV PRN (22:38)
[2020-10-01 03:19] VITALS: BP 146/86
[2020-10-01] MEDS: DOXYCYCLINE 100 MG in DEXTROSE 5% 250 ML IV SCH ×2 (04:46→17:57)
[2020-10-01] MEDS: methylPREDNISolone SOD SUCC 40 MG/ML IVPush SCH ×3 (04:46→22:34)
[2020-10-01] MEDS: OXYcodone IR 5MG TABLET PO PRN ×3 (04:47→18:41)
[2020-10-01 04:55] VITALS: BP 177/88
[2020-10-01 05:48] LABS: MEAN CORPUSCULAR HEMOGLOBIN 28.8 pg (27.5-34.5); MEAN CORPUSCULAR HGB CONC 34.1 g/dL (33.2-36.2); MEAN PLATELET VOLUME 8.2 fL (7.4-10.4); PLATELET COUNT 439 x10^3/uL (130-400); RED BLOOD COUNT 2.69 x10^6/uL (4.38-5.82); RED CELL DISTRIBUTION WIDTH 17.2 % (9.4-14.8)
[2020-10-01 05:58] LABS: ALBUMIN 1.7 g/dL (3.4-5.0); ANION GAP 8 mmol/L (5-15); CALCIUM 6.9 mg/dL (8.5-10.1); CHLORIDE 100 mmol/L (98-107); CREATININE 4.73 mg/dL (0.7-1.3)
[2020-10-01] MEDS: METOPROLOL TARTRATE 50 MG TAB PO SCH ×2 (06:00→17:57)
[2020-10-01 06:32] LABS: ANISOCYTOSIS 1+; BAND#(MANUAL) 0.26 x10^3/uL; BANDS%(MANUAL) 1 % (0-7); LYMPH#(MANUAL) 0.51 x10^3/uL (1-3.4); LYMPHS% (MANUAL) 2 % (22-44); METAMYELOCYTES# (MANUAL) 0.26 x10^3/uL (0-0); METAMYELOCYTES% (MANUAL) 1 % (0-1); MONOS#(MANUAL) 1.02 x10^3/uL (0.3-2.7); MONOS% (MANUAL) 4 % (2-9); POLYCHROMASIA 1+; SEG#(MANUAL) 23.55 x10^3/uL (1.8-6.8); SEGS% (MANUAL) 92 % (42-75)
[2020-10-01 06:33] LABS: <PLATELET ESTIMATE> INCREASED; <PLT MORPHOLOGY> NORMAL PLT MORPH
[2020-10-01 09:54] VITALS: BP 195/107
[2020-10-01] MEDS: INSULIN LISPRO 100 UNITS/ML, PEN SQ-INSULIN SCH ×9 (09:56→20:52)
[2020-10-01] MEDS: INSULIN GLARGINE 100 UNITS/ML, PEN SQ-INSULIN SCH ×2 (09:57→20:51)
[2020-10-01] MEDS: CALCIUM ACETATE 667 MG CAPSULE PO SCH ×4 (09:58→17:00)
[2020-10-01] MEDS: MULTIVITS,STRESS FORMULA 1 TABLET PO SCH (09:58)
[2020-10-01] MEDS: IRON SUCROSE COMPLEX 100MG/5ML IVPush SCH (09:58)
[2020-10-01] MEDS: PANTOPRAZOLE 40 MG IV IVPush SCH (09:58)
[2020-10-01] MEDS: LISINOPRIL 20 MG TABLET PO SCH ×2 (09:59→20:51)
[2020-10-01] MEDS: CALCITRIOL 0.25 MCG CAPSULE PO SCH (09:59)
[2020-10-01] MEDS: ACETAMINOPHEN 325 MG TABLET PO PRN ×2 (09:59→18:40)
[2020-10-01] MEDS: AMLODIPINE 10 MG TAB PO SCH (09:59)
[2020-10-01] MEDS: SODIUM CHLORIDE FLUSH 10ML SYR IVF SCH ×2 (10:00→22:34)
[2020-10-01] MEDS: FUROSEMIDE 80 MG TABLET PO SCH (10:00)
[2020-10-01 11:20] VITALS: BP 188/99
[2020-10-01] MEDS: hydrALAzine 20 MG/ML, 1ML IV PRN (12:07)
[2020-10-01 15:16] VITALS: BP 165/99
[2020-10-01] MEDS: CEFTRIAXONE 2 GM in DEXTROSE 5% 50 ML IVPB SCH (17:02)
[2020-10-01 18:40] VITALS: BP 162/94
[2020-10-02 03:29] VITALS: BP 188/99
[2020-10-02] MEDS: OXYcodone IR 5MG TABLET PO PRN ×3 (03:29→17:24)
[2020-10-02 04:38] VITALS: BP 163/84
[2020-10-02 04:55] LABS: MEAN CORPUSCULAR HEMOGLOBIN 29.1 pg (27.5-34.5); MEAN CORPUSCULAR HGB CONC 34.2 g/dL (33.2-36.2); PLATELET COUNT 476 x10^3/uL (130-400); RED BLOOD COUNT 3.06 x10^6/uL (4.38-5.82)
[2020-10-02 05:06] LABS: ANION GAP 9 mmol/L (5-15); CALCIUM 6.9 mg/dL (8.5-10.1); CHLORIDE 96 mmol/L (98-107)
[2020-10-02] MEDS: PANTOPRAZOLE 40MG TABLET PO SCH (05:39)
[2020-10-02] MEDS: METOPROLOL TARTRATE 50 MG TAB PO SCH ×2 (05:39→17:24)
[2020-10-02 05:40] LABS: ANISOCYTOSIS 1+; BANDS%(MANUAL) 1 % (0-7); LYMPH#(MANUAL) 0.78 x10^3/uL (1-3.4); LYMPHS% (MANUAL) 4 % (22-44); METAMYELOCYTES# (MANUAL) 0.39 x10^3/uL (0-0); METAMYELOCYTES% (MANUAL) 2 % (0-1); MONOS#(MANUAL) 0.98 x10^3/uL (0.3-2.7); MONOS% (MANUAL) 5 % (2-9); MYELOCYTES% (MANUAL) 1 % (0-0); POLYCHROMASIA 1+; SEG#(MANUAL) 17.05 x10^3/uL (1.8-6.8); SEGS% (MANUAL) 87 % (42-75)
[2020-10-02] MEDS: DOXYCYCLINE 100 MG in DEXTROSE 5% 250 ML IV SCH ×2 (05:40→17:30)
[2020-10-02 05:42] LABS: <PLATELET ESTIMATE> INCREASED; <PLT MORPHOLOGY> NORMAL PLT MORPH
[2020-10-02 08:24] VITALS: BP 184/96
[2020-10-02] MEDS: IRON SUCROSE COMPLEX 100MG/5ML IVPush SCH (09:42)
[2020-10-02] MEDS: CALCIUM ACETATE 667 MG CAPSULE PO SCH ×4 (09:42→17:06)
[2020-10-02] MEDS: AMLODIPINE 10 MG TAB PO SCH (09:43)
[2020-10-02] MEDS: LISINOPRIL 20 MG TABLET PO SCH (09:43)
[2020-10-02] MEDS: FUROSEMIDE 80 MG TABLET PO SCH (09:43)
[2020-10-02] MEDS: MULTIVITS,STRESS FORMULA 1 TABLET PO SCH (09:43)
[2020-10-02] MEDS: CALCITRIOL 0.25 MCG CAPSULE PO SCH (09:43)
[2020-10-02] MEDS: SODIUM CHLORIDE FLUSH 10ML SYR IVF SCH ×2 (09:44→19:57)
[2020-10-02] MEDS: INSULIN GLARGINE 100 UNITS/ML, PEN SQ-INSULIN SCH ×2 (09:45→19:57)
[2020-10-02] MEDS: INSULIN LISPRO 100 UNITS/ML, PEN SQ-INSULIN SCH ×7 (09:45→19:57)
[2020-10-02] MEDS ORDERED: NICOTINE 21 MG/24 HR PATCH.TD24 TD ONE (10:00)
[2020-10-02] MEDS ORDERED: LORazepam 0.5MG TABLET ONE (10:04)
[2020-10-02] MEDS ORDERED: NICOTINE 21 MG/24 HR PATCH.TD24 ONE (10:04)
[2020-10-02] MEDS: methylPREDNISolone SOD SUCC 40 MG/ML IVPush SCH ×2 (10:08→14:29)
[2020-10-02] MEDS: LORazepam 0.5MG TABLET PO PRN ×2 (10:08→18:28)
[2020-10-02 13:36] VITALS: BP 178/104
[2020-10-02] MEDS ORDERED: methylPREDNISolone SOD SUCC 40 MG/ML ONE (14:25)
[2020-10-02] MEDS: hydrALAzine 20 MG/ML, 1ML IV PRN (14:29)
[2020-10-02] MEDS: CEFTRIAXONE 2 GM in DEXTROSE 5% 50 ML IVPB SCH ×2 (17:23→18:28)
[2020-10-02 18:35] VITALS: BP 156/81
[2020-10-02] MEDS: LISINOPRIL 40 MG TABLET PO SCH (19:57)
[2020-10-03] MEDS: methylPREDNISolone SOD SUCC 40 MG/ML IVPush SCH ×2 (02:05→14:30)
[2020-10-03 02:32] VITALS: BP 152/87
[2020-10-03] MEDS: METOPROLOL TARTRATE 50 MG TAB PO SCH ×2 (04:59→08:06)
[2020-10-03] MEDS: PANTOPRAZOLE 40MG TABLET PO SCH (05:00)
[2020-10-03] MEDS: DOXYCYCLINE 100 MG in DEXTROSE 5% 250 ML IV SCH (05:01)
[2020-10-03] MEDS: INSULIN LISPRO 100 UNITS/ML, PEN SQ-INSULIN SCH ×4 (07:00→11:13)
[2020-10-03 07:16] VITALS: BP 175/91
[2020-10-03] MEDS: INSULIN GLARGINE 100 UNITS/ML, PEN SQ-INSULIN SCH (08:04)
[2020-10-03] MEDS: CALCIUM ACETATE 667 MG CAPSULE PO SCH ×2 (08:05→11:15)
[2020-10-03] MEDS: LISINOPRIL 40 MG TABLET PO SCH (08:06)
[2020-10-03] MEDS: AMLODIPINE 10 MG TAB PO SCH (08:06)
[2020-10-03] MEDS: FUROSEMIDE 80 MG TABLET PO SCH (08:06)
[2020-10-03] MEDS: SODIUM CHLORIDE FLUSH 10ML SYR IVF SCH (08:13)
[2020-10-03] MEDS: MULTIVITS,STRESS FORMULA 1 TABLET PO SCH (08:14)
[2020-10-03] MEDS: IRON SUCROSE COMPLEX 100MG/5ML IVPush SCH (08:14)
[2020-10-03] MEDS: CALCITRIOL 0.25 MCG CAPSULE PO SCH (08:14)
[2020-10-03] MEDS: LORazepam 0.5MG TABLET PO PRN (11:22)
[2020-10-03 14:48] VITALS: BP 171/101
== END 2020-10-03 15:43 | disposition left against medical advice (07) | DRG 469 ==
LOC: ED 14:53 → EDIP 15:43 → CCU 17:49 → 4WST 09-29 12:55
PROVIDERS: ADMIT Hospitalist; ATTEND Internal Medicine
PROC: 30233N1 Transfusion of Nonautologous Red Blood Cells into Peripheral Vein, Percutaneous Approach (ICD-10-PCS; 2020-09-28)
PROC: 5A09357 Assistance with Respiratory Ventilation, Less than 24 Consecutive Hours, Continuous Positive Airway Pressure (ICD-10-PCS; 2020-09-28)
PROC: 5A1D70Z Performance of Urinary Filtration, Intermittent, Less than 6 Hours Per Day (ICD-10-PCS; principal; 2020-09-29)
PROC: 02HV33Z Insertion of Infusion Device into Superior Vena Cava, Percutaneous Approach (ICD-10-PCS; 2020-09-30)
PROC: 5A1D70Z Performance of Urinary Filtration, Intermittent, Less than 6 Hours Per Day (ICD-10-PCS; 2020-10-01)
DX: N17.9 Acute kidney failure, unspecified (principal); J96.01 Acute respiratory failure with hypoxia; I13.2 Hypertensive heart and chronic kidney disease with heart failure and with stage 5 chronic kidney disease, or end stage renal disease; J18.9 Pneumonia, unspecified organism; E10.22 Type 1 diabetes mellitus with diabetic chronic kidney disease; E10.649 Type 1 diabetes mellitus with hypoglycemia without coma; E10.43 Type 1 diabetes mellitus with diabetic autonomic (poly)neuropathy; D69.6 Thrombocytopenia, unspecified; K31.84 Gastroparesis; Z20.822 Contact with and (suspected) exposure to COVID-19; E83.51 Hypocalcemia; D72.829 Elevated white blood cell count, unspecified; J45.901 Unspecified asthma with (acute) exacerbation; I50.33 Acute on chronic diastolic (congestive) heart failure; N18.6 End stage renal disease; D63.1 Anemia in chronic kidney disease; F15.90 Other stimulant use, unspecified, uncomplicated; T38.0X5A Adverse effect of glucocorticoids and synthetic analogues, initial encounter; Z79.4 Long term (current) use of insulin; Z86.718 Personal history of other venous thrombosis and embolism; Z91.19 Patient's noncompliance with other medical treatment and regimen; Z99.2 Dependence on renal dialysis; Z79.899 Other long term (current) drug therapy; Z79.891 Long term (current) use of opiate analgesic; Z79.01 Long term (current) use of anticoagulants
CPT/HCPCS: 36415; 36430; 36556; 36600; 71045; 74176; 76937; 80048; 80053; 80069; 80307; 81001; 82010; 82306; 82310; 82330; 82436; 82550; 82570; 82607; 82728; 82803; 82947; 82962; 83010; 83540; 83550; 83605; 83615; 83690; 83735; 83880; 83970; 84100; 84133; 84145; 84156; 84300; 84484; 84550; 85014; 85018; 85025; 85045; 85049; 85379; 85384; 85610; 85730; 86140; 86480; 86704; 86706; 86850; 86900; 86923; 87040; 87081; 87086; 87340; 90935; 93005; 93306; 93356; 94644; 94660; 96374; 96375; 99291; C1894; G0378; J0610; J0696; J0881; J1756; J1815; J1940; J7060; U0005; C1751; C9113; G0365; J0360; J1642; J2060; J2920; J2930; J3475; P9016; U0003